=== PATIENT | female | born 1980 | race Caucasian/White ===

== ENCOUNTER 2016-09-10 13:02 | Inpatient (IN) | payer MEDICAID ==
[~2016-09-10] VITALS: Ht 170.2 cm; Wt 98.9 kg
[2016-09-10] MEDS ORDERED: ONDANSETRON HCL 4MG/2ML VIAL IV STA (14:45)
[2016-09-10] MEDS ORDERED: KETOROLAC 30MG/ML VIAL IV STA (14:45)
[2016-09-10] MEDS ORDERED: SODIUM CHLORIDE 0.9% 1,000 ML IV ONE (14:45)
[2016-09-10 15:26] LABS: HEMATOCRIT. 32.9 % (36.0-48.0); HEMOGLOBIN. 10.9 g/dL (12.0-16.0); MEAN CORPUSCULAR HEMOGLOBIN 26.7 pg (28.0-32.0); MEAN CORPUSCULAR HGB CONC 33.2 g/dL (31.0-37.0); MEAN CORPUSCULAR VOLUME 80.6 fL (81.0-99.0); MEAN PLATELET VOLUME 7.5 fl (7.4-10.4); PLATELET 271 x1000/uL (130-400); RED BLOOD CELL COUNT 4.08 mill/uL (4.2-5.4); RED CELL DISTRIBUTION WIDTH 15.5 % (11.6-14.6); WHITE BLOOD COUNT 16.9 x1000/uL (4.5-11.0)
[2016-09-10 15:29] LABS: CHLORIDE 106 mEq/L (98-107); INDEX HEMOLYSI 1 (1-3); INDEX ICTERIC 1 (1-4); INDEX LIPEMIC 1 (1-3)
[2016-09-10 15:31] LABS: DIFFERENTIAL COMMENT 1
[2016-09-10 15:32] LABS: PROTHROMBIN TIME 10.5 sec
[2016-09-10 15:38] LABS: ALANINE AMINOTRANSFERASE 13 IU/L (13-61); ANION GAP 11; CALCIUM 8.1 mg/dL (8.5-10.1); CARBON DIOXIDE 27 mEq/L (21-32); UREA NITROGEN BLOOD 11 mg/dL (7-21); eGFR > 60 mL/min (>60)
[2016-09-10 15:53] LABS: CLARITY URINE CLOUDY (CLEAR); COLOR URINE YELLOW (YELLOW); GLUCOSE URINE NEGATIVE (NEGATIVE); KETONES URINE NEGATIVE (NEGATIVE); LEUKOCYTE ESTERASE URINE 2+ (NEGATIVE); NITRITE URINE POSITIVE (NEGATIVE); OCCULT BLOOD URINE 1+ (NEGATIVE); PH URINE 8.5 (4.5-8.0); PROTEIN URINE 1+ (NEGATIVE); SPECIFIC GRAVITY URINE 1.016 (1.005-1.030); UROBILINOGEN URINE 0.2 E.U./dL (0.2-1.0)
[2016-09-10 16:08] LABS: BACTERIA URINE 4+; SQUAMOUS EPITHELIAL CELL URINE 1+ /lpf (RARE/1+)
[2016-09-10 16:14] LABS: PLATELET ESTIMATE NORMAL
[2016-09-10] MEDS ORDERED: CEFTRIAXONE 1 G PREMIX 50 ML IV ONE (16:15)
[2016-09-10 16:17] LABS: ANISOCYTOSIS 1+
[2016-09-10] MEDS ORDERED: ACETAMINOPHEN 325MG TABLET PO ONE ×2 (16:45→23:00)
[2016-09-10] MEDS ORDERED: MORPHINE SULFATE 4 MG/ML CPJ (NOT FOR IM USE) IV ONE (20:15)
[2016-09-11] VITALS (61 sets, daily range): BP systolic 71–156; BP diastolic 27–86
[2016-09-11] MEDS ORDERED: ACETAMINOPHEN 650MG/20.3ML UDC PO PRN (02:00)
[2016-09-11] MEDS: DEXT 5%/0.9% NACL 1,000 ML IV SCH ×2 (04:11→14:07)
[2016-09-11 07:25] LABS: HEMATOCRIT. 28.2 % (36.0-48.0); HEMOGLOBIN. 9.3 g/dL (12.0-16.0); MEAN CORPUSCULAR HEMOGLOBIN 27.2 pg (28.0-32.0); MEAN CORPUSCULAR VOLUME 82.3 fL (81.0-99.0); MEAN PLATELET VOLUME 7.7 fl (7.4-10.4); PLATELET 163 x1000/uL (130-400); RED BLOOD CELL COUNT 3.42 mill/uL (4.2-5.4); RED CELL DISTRIBUTION WIDTH 15.6 % (11.6-14.6); WHITE BLOOD COUNT 25.4 x1000/uL (4.5-11.0)
[2016-09-11 07:27] LABS: DIFFERENTIAL COMMENT 1
[2016-09-11] MEDS: ONDANSETRON HCL 4MG/2ML VIAL IV PRN (07:46)
[2016-09-11] MEDS: MORPHINE SULFATE 4 MG/ML CPJ (NOT FOR IM USE) IV PRN ×2 (07:46→12:46)
[2016-09-11 08:06] LABS: LACTIC ACID 4.8 mmol/L (0.4-2.0)
[2016-09-11 08:08] LABS: CALCIUM 7.2 mg/dL (8.5-10.1)
[2016-09-11 10:01] LABS: ANISOCYTOSIS 1+; PLATELET ESTIMATE NORMAL
[2016-09-11] MEDS ORDERED: SODIUM CHLORIDE 0.9% 500 ML IV SCH ×2 (12:15→12:45)
[2016-09-11] MEDS: CEFTRIAXONE 1 G PREMIX 50 ML IV SCH (17:37)
[2016-09-11] MEDS ORDERED: SODIUM CHLORIDE 0.9% 500 ML IV NR (18:00)
[2016-09-11] MEDS: FOLIC ACID 1MG TABLET PO SCH (18:03)
[2016-09-11] MEDS: PRENATAL VIT/FE FUMARATE/FA TABLET PO SCH (20:37)
[2016-09-12] VITALS (30 sets, daily range): BP systolic 100–174; BP diastolic 39–95
[2016-09-12] MEDS: MORPHINE SULFATE 4 MG/ML CPJ (NOT FOR IM USE) IV PRN (00:11)
[2016-09-12] MEDS ORDERED: GENTAMICIN SULFATE 150 MG in SODIUM CHLORIDE 0.9% 100 ML IV NR ×2 (02:15→03:00)
[2016-09-12] MEDS: DEXT 5%/0.9% NACL 1,000 ML IV SCH ×2 (05:30→17:48)
[2016-09-12 05:47] LABS: HEMATOCRIT. 27.7 % (36.0-48.0); HEMOGLOBIN. 9.2 g/dL (12.0-16.0); MEAN CORPUSCULAR HEMOGLOBIN 26.6 pg (28.0-32.0); MEAN CORPUSCULAR HGB CONC 33.1 g/dL (31.0-37.0); MEAN CORPUSCULAR VOLUME 80.3 fL (81.0-99.0); MEAN PLATELET VOLUME 8.3 fl (7.4-10.4); PLATELET 146 x1000/uL (130-400); RED BLOOD CELL COUNT 3.45 mill/uL (4.2-5.4); RED CELL DISTRIBUTION WIDTH 16.4 % (11.6-14.6); WHITE BLOOD COUNT 24.1 x1000/uL (4.5-11.0)
[2016-09-12 06:09] LABS: DIFFERENTIAL COMMENT 1
[2016-09-12 06:38] LABS: ALANINE AMINOTRANSFERASE 14 IU/L (13-61); ALBUMIN 2.2 g/dL (3.4-5.0); ANION GAP 15; CALCIUM 7.3 mg/dL (8.5-10.1); CARBON DIOXIDE 20 mEq/L (21-32); CHLORIDE 100 mEq/L (98-107); INDEX HEMOLYSI 1 (1-3); INDEX ICTERIC 1 (1-4); INDEX LIPEMIC 1 (1-3); MAGNESIUM 1.5 mg/dL (1.8-2.4); UREA NITROGEN BLOOD 20 mg/dL (7-21); eGFR 34 mL/min (>60)
[2016-09-12] MEDS: ONDANSETRON HCL 4MG/2ML VIAL IV PRN (08:11)
[2016-09-12 08:15] LABS: PLATELET ESTIMATE NORMAL
[2016-09-12] MEDS ORDERED: MAGNESIUM 1 G PREMIX 100 ML IV NR (08:15)
[2016-09-12] MEDS: PRENATAL VIT/FE FUMARATE/FA TABLET PO SCH (09:00)
[2016-09-12] MEDS: FOLIC ACID 1MG TABLET PO SCH (09:00)
[2016-09-12] MEDS ORDERED: POTASSIUM CHLORIDE INJ 40 MEQ in DEXT 5% WATER 250 ML IV NR (09:30)
[2016-09-12] MEDS ORDERED: VANCOMYCIN 750 MG in DEXT 5% WATER 250 ML IV SCH (12:15)
[2016-09-12] MEDS ORDERED: VANCOMYCIN 1 G PREMIX 200 ML IV NR (14:00)
[2016-09-12] MEDS: CEFTRIAXONE 1 G PREMIX 50 ML IV SCH (16:56)
[2016-09-13] VITALS (13 sets, daily range): BP systolic 119–152; BP diastolic 72–98
[2016-09-13 05:40] LABS: HEMATOCRIT. 27.3 % (36.0-48.0); HEMOGLOBIN. 9.3 g/dL (12.0-16.0); MEAN CORPUSCULAR HEMOGLOBIN 27.2 pg (28.0-32.0); MEAN CORPUSCULAR HGB CONC 34.2 g/dL (31.0-37.0); MEAN CORPUSCULAR VOLUME 79.5 fL (81.0-99.0); MEAN PLATELET VOLUME 8.3 fl (7.4-10.4); PLATELET 118 x1000/uL (130-400); RED BLOOD CELL COUNT 3.43 mill/uL (4.2-5.4); RED CELL DISTRIBUTION WIDTH 16.5 % (11.6-14.6); WHITE BLOOD COUNT 11.7 x1000/uL (4.5-11.0)
[2016-09-13 05:41] LABS: DIFFERENTIAL COMMENT 1
[2016-09-13] MEDS ORDERED: GENTAMICIN SULFATE 160 MG in SODIUM CHLORIDE 0.9% 100 ML IV SCH (06:00)
[2016-09-13 06:05] LABS: CALCIUM 7.8 mg/dL (8.5-10.1); MAGNESIUM 2.2 mg/dL (1.8-2.4)
[2016-09-13] MEDS: DEXT 5%/0.9% NACL 1,000 ML IV SCH ×2 (06:37→21:02)
[2016-09-13] MEDS: PRENATAL VIT/FE FUMARATE/FA TABLET PO SCH (08:20)
[2016-09-13] MEDS: FOLIC ACID 1MG TABLET PO SCH (08:20)
[2016-09-13 10:12] LABS: ANISOCYTOSIS 1+; PLATELET ESTIMATE DECREASED
[2016-09-13] MEDS: CEFTRIAXONE 1 G PREMIX 50 ML IV SCH (17:00)
[2016-09-14] VITALS: BP 126/95
[2016-09-14 04:00] VITALS: BP 132/96
[2016-09-14 08:00] VITALS: BP 104/73
[2016-09-14] MEDS: FOLIC ACID 1MG TABLET PO SCH (09:08)
[2016-09-14] MEDS: PRENATAL VIT/FE FUMARATE/FA TABLET PO SCH (09:08)
[2016-09-14] MEDS: DEXT 5%/0.9% NACL 1,000 ML IV SCH (09:09)
[2016-09-14 12:00] VITALS: BP 120/84
[2016-09-14 14:46] VITALS: BP 120/84
== END 2016-09-14 15:45 | disposition home or self-care (01) | DRG 720 ==
LOC: ER 14:12 → 6EST 21:20 → CVICU 09-11 07:11 → 8WST 09-13 18:30
PROVIDERS: ADMIT Hospitalist; ATTEND Hospitalist
DX: A41.9 Sepsis, unspecified organism (principal); R65.21 Severe sepsis with septic shock; N17.9 Acute kidney failure, unspecified; E83.42 Hypomagnesemia; N13.2 Hydronephrosis with renal and ureteral calculous obstruction; E83.51 Hypocalcemia; Z33.1 Pregnant state, incidental; E66.9 Obesity, unspecified; F17.200 Nicotine dependence, unspecified, uncomplicated; Z60.2 Problems related to living alone; Z68.34 Body mass index [BMI] 34.0-34.9, adult
CPT/HCPCS: 36415; 76770; 76801; 80048; 80053; 81001; 81025; 83605; 83690; 83735; 84145; 84702; 85025; 85610; 87040; 87086; 96361; 96365; 96375; 99285; J0696; J1580; J1885; J2270; J2405; J3370; J3475; J3480; J7030; J7040; J7042; J7050; J7060

== ENCOUNTER 2017-02-07 10:33 | Observation (INO) | payer MEDICAID, OTHER ==
[~2017-02-07] VITALS: Ht 167.6 cm; Wt 99.8 kg
[2017-02-07] MEDS ORDERED: PNV1TABL76 MT (11:01)
[2017-02-07 11:49] LABS: BASOPHILS % 0.1 % (0.0-2.0); CLARITY URINE CLOUDY (CLEAR); COLOR URINE YELLOW (YELLOW); EOSINOPHILS % 0.1 % (0.0-5.0); GLUCOSE URINE NEGATIVE (NEGATIVE); HEMATOCRIT. 28.6 % (36.0-48.0); HEMOGLOBIN. 9.7 g/dL (12.0-16.0); KETONES URINE NEGATIVE (NEGATIVE); LEUKOCYTE ESTERASE URINE 3+ (NEGATIVE); LYMPHOCYTES % 7.1 % (20.0-50.0); MEAN CORPUSCULAR HEMOGLOBIN 26.4 pg (28.0-32.0); MEAN CORPUSCULAR VOLUME 78.3 fL (81.0-99.0); MEAN PLATELET VOLUME 8.3 fl (7.4-10.4); MONOCYTES % 9.8 % (2.0-8.0); NEUTROPHILS % 82.9 % (40.0-76.0); NITRITE URINE POSITIVE (NEGATIVE); OCCULT BLOOD URINE 2+ (NEGATIVE); PH URINE 7.5 (4.5-8.0); PLATELET 188 x1000/uL (130-400); PROTEIN URINE 1+ (NEGATIVE); RED BLOOD CELL COUNT 3.66 mill/uL (4.2-5.4); RED CELL DISTRIBUTION WIDTH 16.4 % (11.6-14.6); SPECIFIC GRAVITY URINE 1.008 (1.005-1.030); UROBILINOGEN URINE 0.2 E.U./dL (0.2-1.0)
[2017-02-07] MEDS: LACTATED RINGERS 1,000 ML IV SCH ×2 (11:51→20:05)
[2017-02-07 11:57] LABS: CHLORIDE 99 mEq/L (98-107)
[2017-02-07] MEDS: ACETAMINOPHEN 325MG TABLET PO PRN ×2 (11:58→18:31)
[2017-02-07] MEDS ORDERED: CEFAZOLIN 2,000 MG in DEXT 5% WATER 100 ML IV SCH (12:00)
[2017-02-07 12:05] LABS: CARBON DIOXIDE 21 mEq/L (21-32)
[2017-02-07 12:19] LABS: *AMPHETAMINES SCREEN URINE NEGATIVE (NEGATIVE); *BARBITURATES SCREEN URINE NEGATIVE (NEGATIVE); *BENZODIAZEPINES SCREEN URINE NEGATIVE (NEGATIVE); *COCAINE SCREEN URINE NEGATIVE (NEGATIVE); CANNABINOID URINE SCREEN NEGATIVE (NEGATIVE); METHADONE URINE SCREEN NEGATIVE (NEGATIVE); OPIATES URINE SCREEN NEGATIVE (NEGATIVE); PHENCYCLIDINE URINE SCREEN NEGATIVE (NEGATIVE)
[2017-02-07] MEDS ORDERED: CEFAZOLIN SODIUM 1000MG/VIAL IV SCH (18:00)
[2017-02-07 18:30] VITALS: BP 114/55
[2017-02-07] MEDS: CEFAZOLIN 1000MG PREMIX 50 ML IV SCH (18:30)
[2017-02-07] MEDS: GENTAMICIN 80MG PREMIX 100 ML IV SCH (20:04)
[2017-02-07 20:30] VITALS: BP 117/51
[2017-02-08 00:05] VITALS: BP 103/55
[2017-02-08] MEDS: CEFAZOLIN 1000MG PREMIX 50 ML IV SCH ×4 (00:07→19:53)
[2017-02-08] MEDS: ACETAMINOPHEN 325MG TABLET PO PRN (00:07)
[2017-02-08] MEDS: GENTAMICIN 80MG PREMIX 100 ML IV SCH ×3 (04:06→21:01)
[2017-02-08 05:30] VITALS: BP 95/58
[2017-02-08] MEDS: LACTATED RINGERS 1,000 ML IV SCH (05:44)
[2017-02-08 07:19] LABS: HEMOGLOBIN 9.4 g/dL (12.0-16.0); MEAN CORPUSCULAR HEMOGLOBIN 26.7 pg (28.0-32.0); MEAN CORPUSCULAR VOLUME 79.4 fL (81.0-99.0); PLATELET 166 x1000/uL (130-400); RED BLOOD CELL COUNT 3.52 mill/uL (4.2-5.4); RED CELL DISTRIBUTION WIDTH 16.3 % (11.6-14.6)
[2017-02-08 08:00] VITALS: BP 100/54
[2017-02-08 08:38] LABS: CARBON DIOXIDE 23 mEq/L (21-32); CHLORIDE 100 mEq/L (98-107)
[2017-02-08] MEDS ORDERED: POTASSIUM CHLORIDE 20MEQ TABLET SR PO SCH (09:00)
[2017-02-08 14:00] VITALS: BP 105/56
[2017-02-08] MEDS: PRENATAL VIT/FE FUMARATE/FA TABLET PO SCH (14:21)
[2017-02-08 20:00] VITALS: BP 97/49
[2017-02-09 00:01] VITALS: BP 114/60
[2017-02-09] MEDS: CEFAZOLIN 1000MG PREMIX 50 ML IV SCH ×2 (01:27→09:54)
[2017-02-09] MEDS: GENTAMICIN 80MG PREMIX 100 ML IV SCH ×2 (04:28→12:24)
[2017-02-09 04:30] VITALS: BP 98/58
[2017-02-09 07:39] LABS: HEMATOCRIT 25.7 % (36.0-48.0); HEMOGLOBIN 8.7 g/dL (12.0-16.0); MEAN CORPUSCULAR HEMOGLOBIN 27.1 pg (28.0-32.0); MEAN CORPUSCULAR VOLUME 79.5 fL (81.0-99.0); PLATELET 158 x1000/uL (130-400); RED BLOOD CELL COUNT 3.23 mill/uL (4.2-5.4); RED CELL DISTRIBUTION WIDTH 16.7 % (11.6-14.6)
[2017-02-09 08:04] LABS: CARBON DIOXIDE 24 mEq/L (21-32); CHLORIDE 105 mEq/L (98-107)
[2017-02-09] MEDS: PRENATAL VIT/FE FUMARATE/FA TABLET PO SCH (09:54)
[2017-02-09 10:07] VITALS: BP 90/48
[2017-02-09 12:00] VITALS: BP_SYST 1
== END 2017-02-09 15:40 | disposition home or self-care (01) ==
LOC: L&D 10:33 → 7EST PP/OB 16:22
PROVIDERS: ADMIT Obstetrics & Gynecology; ATTEND Obstetrics & Gynecology
DX: O23.02 Infections of kidney in pregnancy, second trimester (principal); O99.282 Endocrine, nutritional and metabolic diseases complicating pregnancy, second trimester; E87.6 Hypokalemia; O99.012 Anemia complicating pregnancy, second trimester; Z3A.26 26 weeks gestation of pregnancy
CPT/HCPCS: 36415; 76805; 80048; 80053; 80305; 81001; 85025; 85027; 87077; 87086; 87186; 96361; 96365; 96367; 96375; G0378; J0690; J1580; J7120; 99281; J7060

== ENCOUNTER 2017-03-04 05:21 | Inpatient (IN) | payer OTHER ==
[~2017-03-04] VITALS: Ht 172.7 cm; Wt 99.8 kg
[~2017-03-04 05:21] MED LIST: PNV1TABL76 MT
[2017-03-04] MEDS ORDERED: BETAMETHASONE ACET/BETAMET 30 MG/5 ML VIAL IM ONE (06:30)
[2017-03-04] MEDS: LACTATED RINGERS 1,000 ML IV SCH ×3 (06:42→16:02)
[2017-03-04 07:08] LABS: BASOPHILS % 0.2 % (0.0-2.0); EOSINOPHILS % 0.5 % (0.0-5.0); HEMATOCRIT. 30.3 % (36.0-48.0); LYMPHOCYTES % 19.6 % (20.0-50.0); MEAN CORPUSCULAR HEMOGLOBIN 26.4 pg (28.0-32.0); MEAN PLATELET VOLUME 8.3 fl (7.4-10.4); MONOCYTES % 6.7 % (2.0-8.0); PLATELET 218 x1000/uL (130-400); RED BLOOD CELL COUNT 3.79 mill/uL (4.2-5.4); RED CELL DISTRIBUTION WIDTH 16.7 % (11.6-14.6)
[2017-03-04 07:23] LABS: CARBON DIOXIDE 21 mEq/L (21-32); CHLORIDE 109 mEq/L (98-107)
[2017-03-04 07:31] LABS: PROTHROMBIN TIME 9.9 sec (9.4-11.6)
[2017-03-04 07:56] LABS: HEPATITIS B SURFACE ANTIGEN NEGATIVE
[2017-03-04] MEDS ORDERED: CARBOPROST TROMETHAMINE 250 MCG/ML AMPUL IM PRN (08:45)
[2017-03-04] MEDS ORDERED: DEXT 5%/LR + PITOCIN 20UNITS/L 1,000 ML IV SCH (08:45)
[2017-03-04] MEDS ORDERED: AMPICILLIN 2,000 MG in SODIUM CHLORIDE 0.9% 100 ML IV SCH (08:45)
[2017-03-04] MEDS ORDERED: METHYLERGONOVINE MALEATE 0.2 MG/ML IM PRN (08:45)
[2017-03-04] MEDS: AZITHROMYCIN 500 MG in DEXT 5% WATER 250 ML IV SCH (09:57)
[2017-03-04 11:11] LABS: CLARITY URINE CLEAR (CLEAR); COLOR URINE YELLOW (YELLOW); GLUCOSE URINE NEGATIVE (NEGATIVE); KETONES URINE NEGATIVE (NEGATIVE); LEUKOCYTE ESTERASE URINE TRACE (NEGATIVE); NITRITE URINE NEGATIVE (NEGATIVE); OCCULT BLOOD URINE 1+ (NEGATIVE); PH URINE 6.5 (4.5-8.0); PROTEIN URINE 1+ (NEGATIVE); SPECIFIC GRAVITY URINE 1.015 (1.005-1.030); UROBILINOGEN URINE 0.2 E.U./dL (0.2-1.0)
[2017-03-04 11:28] LABS: *BARBITURATES SCREEN URINE NEGATIVE (NEGATIVE); *BENZODIAZEPINES SCREEN URINE NEGATIVE (NEGATIVE); *COCAINE SCREEN URINE NEGATIVE (NEGATIVE); CANNABINOID URINE SCREEN NEGATIVE (NEGATIVE); METHADONE URINE SCREEN NEGATIVE (NEGATIVE); OPIATES URINE SCREEN NEGATIVE (NEGATIVE); PHENCYCLIDINE URINE SCREEN NEGATIVE (NEGATIVE)
[2017-03-04 11:31] LABS: *AMPHETAMINES SCREEN URINE PRESUMTIVE POSITIVE (NEGATIVE)
[2017-03-04] MEDS: AMPICILLIN 1,000 MG in SODIUM CHLORIDE 0.9% 50 ML IV SCH ×2 (16:56→22:57)
[2017-03-04] MEDS ORDERED: CEFAZOLIN 2,000 MG in DEXT 5% WATER 100 ML IV SCH (21:30)
[2017-03-04] MEDS ORDERED: LACTATED RINGERS 1,000 ML IV SCH (21:30)
[2017-03-05] MEDS: AMPICILLIN 1,000 MG in SODIUM CHLORIDE 0.9% 50 ML IV SCH ×4 (04:52→23:05)
[2017-03-05] MEDS: LACTATED RINGERS 1,000 ML IV SCH ×3 (04:53→21:42)
[2017-03-05] MEDS ORDERED: BETAMETHASONE ACET/BETAMET 30 MG/5 ML VIAL IM SCH (06:30)
[2017-03-05] MEDS: AZITHROMYCIN 500 MG in DEXT 5% WATER 250 ML IV SCH (09:15)
[2017-03-05 20:59] LABS: BASOPHILS % 0.1 % (0.0-2.0); EOSINOPHILS % 0.1 % (0.0-5.0); HEMOGLOBIN. 9.1 g/dL (12.0-16.0); MEAN CORPUSCULAR HEMOGLOBIN 26.2 pg (28.0-32.0); MEAN CORPUSCULAR VOLUME 80.3 fL (81.0-99.0); MEAN PLATELET VOLUME 8.3 fl (7.4-10.4); NEUTROPHILS % 83.8 % (40.0-76.0); PLATELET 211 x1000/uL (130-400); RED BLOOD CELL COUNT 3.49 mill/uL (4.2-5.4); RED CELL DISTRIBUTION WIDTH 16.7 % (11.6-14.6)
[2017-03-06] MEDS: AMPICILLIN 1,000 MG in SODIUM CHLORIDE 0.9% 50 ML IV SCH ×4 (05:03→22:54)
[2017-03-06] MEDS: LACTATED RINGERS 1,000 ML IV SCH ×3 (06:27→22:55)
[2017-03-06] MEDS: AZITHROMYCIN 500 MG in DEXT 5% WATER 250 ML IV SCH (11:56)
[2017-03-07] MEDS: DOCUSATE SODIUM 100MG CAPSULE PO SCH ×2 (00:08→08:55)
[2017-03-07] MEDS: AMPICILLIN 1,000 MG in SODIUM CHLORIDE 0.9% 50 ML IV SCH ×3 (05:03→18:12)
[2017-03-07] MEDS: LACTATED RINGERS 1,000 ML IV SCH ×2 (07:58→18:12)
[2017-03-07] MEDS: AZITHROMYCIN 500 MG in DEXT 5% WATER 250 ML IV SCH (12:56)
[2017-03-07] MEDS ORDERED: FLOV11 IH (15:18)
[2017-03-08] MEDS: AMPICILLIN 1,000 MG in SODIUM CHLORIDE 0.9% 50 ML IV SCH ×4 (00:09→17:58)
[2017-03-08] MEDS: DOCUSATE SODIUM 100MG CAPSULE PO SCH ×3 (00:11→23:59)
[2017-03-08] MEDS: LACTATED RINGERS 1,000 ML IV SCH ×3 (03:50→18:47)
[2017-03-08] MEDS: AZITHROMYCIN 500 MG in DEXT 5% WATER 250 ML IV SCH (12:56)
[2017-03-08] MEDS ORDERED: POTASSIUM CHLORIDE 20MEQ TABLET SR PO NR (19:15)
[2017-03-09] MEDS: LACTATED RINGERS 1,000 ML IV SCH ×3 (05:02→20:34)
[2017-03-09] MEDS: AMPICILLIN 1,000 MG in SODIUM CHLORIDE 0.9% 50 ML IV SCH ×6 (06:32→17:56)
[2017-03-09] MEDS ORDERED: POTASSIUM CHLORIDE 20MEQ TABLET SR PO SCH (07:00)
[2017-03-09] MEDS: DOCUSATE SODIUM 100MG CAPSULE PO SCH (10:22)
[2017-03-09] MEDS: AZITHROMYCIN 500 MG in DEXT 5% WATER 250 ML IV SCH (13:24)
[2017-03-09 14:22] LABS: HEMATOCRIT 29.8 % (36.0-48.0); HEMOGLOBIN 9.8 g/dL (12.0-16.0); MEAN CORPUSCULAR HEMOGLOBIN 26.3 pg (28.0-32.0); MEAN CORPUSCULAR VOLUME 79.7 fL (81.0-99.0); PLATELET 196 x1000/uL (130-400); RED BLOOD CELL COUNT 3.74 mill/uL (4.2-5.4); RED CELL DISTRIBUTION WIDTH 16.5 % (11.6-14.6)
[2017-03-09] MEDS ORDERED: MAGNESIUM 20 G PREMIX (L & D) 500 ML IV SCH (18:00)
[2017-03-09] MEDS: MAGNESIUM 4 G PREMIX 100 ML IV NR ×2 (18:46→18:47)
[2017-03-10] MEDS: DOCUSATE SODIUM 100MG CAPSULE PO SCH ×3 (00:20→21:05)
[2017-03-10] MEDS: AMPICILLIN 1,000 MG in SODIUM CHLORIDE 0.9% 50 ML IV SCH ×4 (00:22→17:46)
[2017-03-10] MEDS: LACTATED RINGERS 1,000 ML IV SCH ×3 (02:32→17:47)
[2017-03-10] MEDS: AZITHROMYCIN 500 MG in DEXT 5% WATER 250 ML IV SCH (13:40)
[2017-03-10 17:12] LABS: AMPHETAMINE CONF URINE Positive (.)
[2017-03-11] MEDS: AMPICILLIN 1,000 MG in SODIUM CHLORIDE 0.9% 50 ML IV SCH ×3 (00:26→12:16)
[2017-03-11] MEDS: LACTATED RINGERS 1,000 ML IV SCH ×2 (01:55→10:45)
[2017-03-11] MEDS: DOCUSATE SODIUM 100MG CAPSULE PO SCH ×2 (08:55→21:38)
[2017-03-11] MEDS: PRENATAL VIT/FE FUMARATE/FA TABLET PO SCH (08:55)
[2017-03-11] MEDS: AZITHROMYCIN 500 MG in DEXT 5% WATER 250 ML IV SCH (14:35)
[2017-03-12 07:44] LABS: BASOPHILS % 0.2 % (0.0-2.0); EOSINOPHILS % 1.6 % (0.0-5.0); HEMOGLOBIN. 10.1 g/dL (12.0-16.0); LYMPHOCYTES % 23.3 % (20.0-50.0); MEAN CORPUSCULAR HEMOGLOBIN 25.9 pg (28.0-32.0); MEAN CORPUSCULAR VOLUME 79.3 fL (81.0-99.0); MEAN PLATELET VOLUME 7.8 fl (7.4-10.4); MONOCYTES % 9.8 % (2.0-8.0); NEUTROPHILS % 65.1 % (40.0-76.0); PLATELET 217 x1000/uL (130-400); RED BLOOD CELL COUNT 3.91 mill/uL (4.2-5.4); RED CELL DISTRIBUTION WIDTH 16.5 % (11.6-14.6)
[2017-03-12 07:59] LABS: CARBON DIOXIDE 26 mEq/L (21-32); CHLORIDE 102 mEq/L (98-107)
[2017-03-12] MEDS: PRENATAL VIT/FE FUMARATE/FA TABLET PO SCH (08:22)
[2017-03-12] MEDS: DOCUSATE SODIUM 100MG CAPSULE PO SCH ×2 (08:22→18:56)
[2017-03-12] MEDS ORDERED: ALBUMIN HUMAN 12.5G/250ML (5%) IV ONE (11:07)
[2017-03-13] MEDS: DOCUSATE SODIUM 100MG CAPSULE PO SCH ×2 (08:34→17:26)
[2017-03-13] MEDS: PRENATAL VIT/FE FUMARATE/FA TABLET PO SCH (08:35)
[2017-03-14] MEDS: PRENATAL VIT/FE FUMARATE/FA TABLET PO SCH (09:26)
[2017-03-14] MEDS: DOCUSATE SODIUM 100MG CAPSULE PO SCH ×3 (09:26→22:26)
[2017-03-15] MEDS: DOCUSATE SODIUM 100MG CAPSULE PO SCH (09:02)
[2017-03-15] MEDS: PRENATAL VIT/FE FUMARATE/FA TABLET PO SCH (09:02)
[2017-03-16] MEDS: PRENATAL VIT/FE FUMARATE/FA TABLET PO SCH (08:59)
[2017-03-16] MEDS: DOCUSATE SODIUM 100MG CAPSULE PO SCH (08:59)
[2017-03-17] MEDS: DOCUSATE SODIUM 100MG CAPSULE PO SCH (09:08)
[2017-03-17] MEDS: PRENATAL VIT/FE FUMARATE/FA TABLET PO SCH (09:08)
[2017-03-18] MEDS: DOCUSATE SODIUM 100MG CAPSULE PO SCH (07:39)
[2017-03-18] MEDS: PRENATAL VIT/FE FUMARATE/FA TABLET PO SCH (07:39)
[2017-03-19] MEDS: LACTATED RINGERS 1,000 ML IV SCH ×2 (03:21→06:58)
[2017-03-19] MEDS ORDERED: MAGNESIUM 20 G PREMIX (L & D) 500 ML IV SCH (04:30)
[2017-03-19 06:41] LABS: HEMATOCRIT 30.7 % (36.0-48.0); HEMOGLOBIN 10.2 g/dL (12.0-16.0); MEAN CORPUSCULAR HEMOGLOBIN 26.7 pg (28.0-32.0); MEAN CORPUSCULAR VOLUME 80.3 fL (81.0-99.0); PLATELET 190 x1000/uL (130-400); RED BLOOD CELL COUNT 3.82 mill/uL (4.2-5.4); RED CELL DISTRIBUTION WIDTH 17.4 % (11.6-14.6)
[2017-03-19] MEDS: BUTORPHANOL TARTRATE 2 MG/ML VIAL IV PRN ×2 (06:41→09:10)
[2017-03-19 07:09] LABS: *AMPHETAMINES SCREEN URINE NEGATIVE (NEGATIVE); *BARBITURATES SCREEN URINE NEGATIVE (NEGATIVE); *BENZODIAZEPINES SCREEN URINE NEGATIVE (NEGATIVE); *COCAINE SCREEN URINE NEGATIVE (NEGATIVE); CANNABINOID URINE SCREEN NEGATIVE (NEGATIVE); METHADONE URINE SCREEN NEGATIVE (NEGATIVE); OPIATES URINE SCREEN NEGATIVE (NEGATIVE); PHENCYCLIDINE URINE SCREEN NEGATIVE (NEGATIVE)
[2017-03-19] MEDS ORDERED: MIDAZOLAM HCL 2 MG/2 ML VIAL ONE (10:37)
[2017-03-19] MEDS ORDERED: MORPHINE SULFATE/PF 1MG/ML 10ML AMP ONE (10:37)
[2017-03-19] MEDS ORDERED: SODIUM CHLORIDE 0.9% 10ML VIAL ONE (10:40)
[2017-03-19] MEDS ORDERED: DEXAMETHASONE 4MG/ML 1ML VIAL ONE (10:40)
[2017-03-19] MEDS ORDERED: CEFAZOLIN SODIUM 1000MG/VIAL ONE (10:40)
[2017-03-19] MEDS ORDERED: PHENYLEPHRINE HCL 10 MG/ML 1ML (IV VIAL) IV ONE (10:40)
[2017-03-19] MEDS ORDERED: ONDANSETRON HCL 4MG/2ML VIAL ONE (10:40)
[2017-03-19] MEDS ORDERED: EPHEDRINE SULFATE 50MG/ML VIAL ONE (10:40)
[2017-03-19] MEDS ORDERED: OXYTOCIN 10 UNITS/ML 1ML ONE (10:40)
[2017-03-19] MEDS ORDERED: RHO(D) IMMUNE GLOBULIN 300 MCG/SYR IM PRN (12:15)
[2017-03-19] MEDS ORDERED: LANOLIN OINT 0.25 GM TUBE TOP PRN (12:15)
[2017-03-19] MEDS ORDERED: ONDANSETRON HCL 4MG/2ML VIAL IV PRN ×2 (12:15→12:30)
[2017-03-19] MEDS ORDERED: HYDROCODONE/ACETAMINOPHEN 5/325MG TABLET PO PRN (12:15)
[2017-03-19] MEDS ORDERED: DIPHENHYDRAMINE 50MG/ML VIAL IV PRN (12:30)
[2017-03-19] MEDS ORDERED: NALOXONE HCL 0.4 MG/ML 1ML VIAL IV PRN (12:30)
[2017-03-19] MEDS ORDERED: DEXT 5%/LR + PITOCIN 20UNITS/L 1,000 ML IV SCH (12:55)
[2017-03-19] MEDS ORDERED: CEFAZOLIN 1000MG PREMIX 50 ML IV SCH (14:00)
[2017-03-19] MEDS ORDERED: CEFAZOLIN SODIUM 1000MG/VIAL IV SCH (14:00)
[2017-03-19 15:00] VITALS: BP 100/60
[2017-03-19 15:30] VITALS: BP 100/57
[2017-03-19] MEDS: KETOROLAC 30MG/ML VIAL IV SCH ×2 (16:00→22:25)
[2017-03-19] MEDS: CEFAZOLIN 1000MG PREMIX 50 ML IV SCH (17:24)
[2017-03-19 22:20] VITALS: BP 102/50
[2017-03-20 01:57] VITALS: BP 105/60
[2017-03-20] MEDS: CEFAZOLIN 1000MG PREMIX 50 ML IV SCH ×3 (02:00→17:33)
[2017-03-20 05:56] VITALS: BP 100/53
[2017-03-20 06:40] LABS: BASOPHILS % 0.1 % (0.0-2.0); EOSINOPHILS % 0.3 % (0.0-5.0); HEMATOCRIT. 24.3 % (36.0-48.0); HEMOGLOBIN. 8.1 g/dL (12.0-16.0); LYMPHOCYTES % 10.2 % (20.0-50.0); MEAN CORPUSCULAR HEMOGLOBIN 27.2 pg (28.0-32.0); MEAN CORPUSCULAR VOLUME 81.4 fL (81.0-99.0); MEAN PLATELET VOLUME 7.9 fl (7.4-10.4); MONOCYTES % 4.9 % (2.0-8.0); NEUTROPHILS % 84.5 % (40.0-76.0); PLATELET 167 x1000/uL (130-400); RED BLOOD CELL COUNT 2.98 mill/uL (4.2-5.4)
[2017-03-20 08:00] VITALS: BP 110/70
[2017-03-20] MEDS: PRENATAL VIT/FE FUMARATE/FA TABLET PO SCH (09:46)
[2017-03-20] MEDS: HYDROCODONE/ACETAMINOPHEN 5/325MG TABLET PO PRN (16:13)
[2017-03-20 16:16] VITALS: BP 117/61
[2017-03-20] MEDS: FERROUS SULFATE 325MG TABLET PO SCH (17:33)
[2017-03-20 20:00] VITALS: BP 109/62
[2017-03-20] MEDS: DOCUSATE SODIUM 100MG CAPSULE PO SCH (20:51)
[2017-03-20] MEDS: IBUPROFEN 400MG TABLET PO PRN (22:14)
[2017-03-21] MEDS: CEFAZOLIN 1000MG PREMIX 50 ML IV SCH ×2 (01:04→09:15)
[2017-03-21 07:30] VITALS: BP 98/71
[2017-03-21] MEDS: HYDROCODONE/ACETAMINOPHEN 5/325MG TABLET PO PRN ×2 (09:17→17:39)
[2017-03-21] MEDS: FERROUS SULFATE 325MG TABLET PO SCH (12:56)
[2017-03-21 13:00] VITALS: BP 113/76
[2017-03-21] MEDS ORDERED: INFLUENZA VIRUS VACCINE 0.5ML SYR IM ONE (15:30)
[2017-03-21] MEDS ORDERED: TETANUS, DIPHTHERIA, PERTUSSIS VAC/PF 0.5ML (>7YR OLD) IM ONE (15:30)
[2017-03-21 16:08] VITALS: BP 113/70
[2017-03-21 20:00] VITALS: BP 109/73
[2017-03-21] MEDS: DOCUSATE SODIUM 100MG CAPSULE PO SCH (20:43)
[2017-03-21] MEDS: IBUPROFEN 400MG TABLET PO PRN (20:44)
[2017-03-22 05:45] VITALS: BP 112/71
[2017-03-22 07:40] VITALS: BP 112/80
[2017-03-22] MEDS: FERROUS SULFATE 325MG TABLET PO SCH ×3 (08:02→12:07)
[2017-03-22] MEDS: PRENATAL VIT/FE FUMARATE/FA TABLET PO SCH (08:04)
== END 2017-03-22 13:30 | disposition home or self-care (01) | DRG 540 ==
LOC: L&D 05:21 → OBSVTOIN 05:21 → L&D 03-08 11:46 → 7EST PP/OB 03-19 16:15
PROVIDERS: ADMIT Obstetrics & Gynecology; ATTEND Obstetrics & Gynecology
PROC: 10D00Z1 Extraction of Products of Conception, Low, Open Approach (ICD-10-PCS; principal; 2017-03-19 10:42)
DX: O34.211 Maternal care for low transverse scar from previous cesarean delivery (principal); D62 Acute posthemorrhagic anemia; O41.03X0 Oligohydramnios, third trimester, not applicable or unspecified; O99.324 Drug use complicating childbirth; O60.10X0 Preterm labor with preterm delivery, unspecified trimester, not applicable or unspecified; O75.89 Other specified complications of labor and delivery; H35.00 Unspecified background retinopathy; O32.2XX0 Maternal care for transverse and oblique lie, not applicable or unspecified; F15.10 Other stimulant abuse, uncomplicated; E87.6 Hypokalemia; O67.9 Intrapartum hemorrhage, unspecified; O03.9 Complete or unspecified spontaneous abortion without complication; O99.284 Endocrine, nutritional and metabolic diseases complicating childbirth; O42.913 Preterm premature rupture of membranes, unspecified as to length of time between rupture and onset of labor, third trimester; O99.02 Anemia complicating childbirth; Z37.0 Single live birth; Z3A.30 30 weeks gestation of pregnancy
CPT/HCPCS: 36415; 76805; 76815; 76818; 80053; 80305; 80307; 81001; 83735; 85025; 85027; 85610; 85730; 86592; 86703; 86762; 86850; 86900; 87070; 87075; 87076; 87205; 87340; 88307; 90686; 90715; 99281; A4216; G0378; J0171; J0290; J0456; J0595; J0690; J0702; J1100; J1200; J1885; J2250; J2274; J2370; J2405; J2590; J3475; J7050; J7060; J7120; P9041; A4315

== ENCOUNTER 2017-11-23 22:48 | Emergency (ER) | payer OTHER ==
[~2017-11-23] VITALS: Ht 170.2 cm; Wt 130.0 kg
[2017-11-24] MEDS ORDERED: ONDANSETRON 4MG ODT PO STA (07:52)
[2017-11-24] MEDS ORDERED: ACETAMINOPHEN 325MG TABLET PO STA (07:52)
[2017-11-24 08:22] LABS: BASOPHILS % 0.2 % (0.0-2.0); EOSINOPHILS % 0.1 % (0.0-5.0); HEMATOCRIT. 32.8 % (36.0-48.0); HEMOGLOBIN. 10.9 g/dL (12.0-16.0); LYMPHOCYTES % 15.1 % (20.0-50.0); MEAN CORPUSCULAR HEMOGLOBIN 23.6 pg (28.0-32.0); MEAN CORPUSCULAR VOLUME 71.1 fL (81.0-99.0); MONOCYTES % 10.9 % (2.0-8.0); NEUTROPHILS % 73.7 % (40.0-76.0); PLATELET 192 x1000/uL (130-400); RED BLOOD CELL COUNT 4.61 mill/uL (4.2-5.4); RED CELL DISTRIBUTION WIDTH 18.1 % (11.6-14.6)
[2017-11-24 08:27] LABS: CHLORIDE 98 mEq/L (98-107)
[2017-11-24 08:28] LABS: INR 1.1; PROTHROMBIN TIME 11.5 sec (9.4-11.6)
[2017-11-24 08:56] LABS: CLARITY URINE CLOUDY (CLEAR); COLOR URINE AMBER (YELLOW); KETONES URINE TRACE (NEGATIVE); LEUKOCYTE ESTERASE URINE 2+ (NEGATIVE); NITRITE URINE NEGATIVE (NEGATIVE); OCCULT BLOOD URINE 3+ (NEGATIVE); PROTEIN URINE 2+ (NEGATIVE)
[2017-11-24] MEDS ORDERED: SODIUM CHLORIDE 0.9% 1,000 ML IV ONE ×2 (09:01→12:04)
[2017-11-24 09:18] LABS: *BARBITURATES SCREEN URINE NEGATIVE (NEGATIVE); *BENZODIAZEPINES SCREEN URINE NEGATIVE (NEGATIVE); *COCAINE SCREEN URINE NEGATIVE (NEGATIVE); METHADONE URINE SCREEN NEGATIVE (NEGATIVE); OPIATES URINE SCREEN NEGATIVE (NEGATIVE)
[2017-11-24 09:19] LABS: *AMPHETAMINES SCREEN URINE PRESUMTIVE POSITIVE (NEGATIVE); CANNABINOID URINE SCREEN NEGATIVE (NEGATIVE); PHENCYCLIDINE URINE SCREEN NEGATIVE (NEGATIVE)
[2017-11-24] MEDS ORDERED: POTASSIUM CHLORIDE 10MEQ TABLET SR PO ONE (12:30)
[2017-11-24 14:34] VITALS: BP 114/61
== END 2017-11-24 14:21 | disposition home or self-care (01) ==
LOC: ER 22:48
DX: N39.0 Urinary tract infection, site not specified (principal); F15.10 Other stimulant abuse, uncomplicated
CPT/HCPCS: 36415; 80053; 80305; 81003; 81025; 83690; 85025; 85610; 87077; 87086; 87186; 93005; 96360; 96361; 99285; J7030; Q0162

== ENCOUNTER 2018-04-26 15:50 | Emergency (ER) | payer OTHER ==
[~2018-04-26] VITALS: Ht 170.2 cm; Wt 118.0 kg
[2018-04-26] MEDS ORDERED: IBUP-2029 PO (16:28)
[2018-04-26] MEDS ORDERED: AMOX1TAB15 PO (16:28)
[2018-04-26] MEDS ORDERED: BACITRACIN ZINC OINT UDPKT TOP ONE (18:00)
[2018-04-26] MEDS ORDERED: DIPHENHYDRAMINE 25MG CAPSULE PO ONE (18:00)
[2018-04-26] MEDS ORDERED: TETANUS, DIPHTHERIA, PERTUSSIS VAC/PF 0.5ML (>7YR OLD) IM ONE (18:00)
[2018-04-26 19:52] VITALS: BP 128/54
== END 2018-04-26 20:17 | disposition home or self-care (01) ==
LOC: ER 15:50
DX: S50.01XA Contusion of right elbow, initial encounter (principal); N28.9 Disorder of kidney and ureter, unspecified; Z98.890 Other specified postprocedural states; Z79.899 Other long term (current) drug therapy; W18.39XA Other fall on same level, initial encounter; Y93.89 Activity, other specified; Y92.89 Other specified places as the place of occurrence of the external cause; Y99.8 Other external cause status
CPT/HCPCS: 73080; 73090; 90471; 90715; 99283; A4565; Q0163

== ENCOUNTER 2019-04-21 23:12 | Emergency (ER) | payer OTHER ==
[~2019-04-21] VITALS: Ht 170.2 cm; Wt 132.0 kg
[~2019-04-21 23:12] MED LIST changes: +AMOX1TAB15 PO; +IBUP-2029 PO; -PNV1TABL76 MT
[2019-04-22] MEDS ORDERED: SODIUM CHLORIDE 0.9% 1,000 ML IV ONE (00:02)
[2019-04-22] MEDS ORDERED: ONDANSETRON HCL 4MG/2ML INJ IV STA (00:02)
[2019-04-22] MEDS ORDERED: ACETAMINOPHEN 325MG TABLET PO STA (00:02)
[2019-04-22 01:13] LABS: BASOPHILS % 0.5 % (0.0-2.0); EOSINOPHILS % 1.5 % (0.0-5.0); HEMATOCRIT. 37.4 % (36.0-48.0); HEMOGLOBIN. 12.4 g/dL (12.0-16.0); LYMPHOCYTES % 29.3 % (20.0-50.0); MEAN CORPUSCULAR HEMOGLOBIN 24.8 pg (28.0-32.0); MEAN CORPUSCULAR VOLUME 74.9 fL (81.0-99.0); MEAN PLATELET VOLUME 8.5 fl (7.4-10.4); MONOCYTES % 6.4 % (2.0-8.0); NEUTROPHILS % 62.3 % (40.0-76.0); PLATELET 336 x1000/uL (130-400); RED BLOOD CELL COUNT 4.99 mill/uL (4.2-5.4)
[2019-04-22 01:22] LABS: CHLORIDE 109 mEq/L (98-107)
[2019-04-22 01:25] LABS: ETHANOL BLOOD < 10 mg/dL
[2019-04-22 01:47] LABS: CLARITY URINE TURBID (CLEAR); COLOR URINE YELLOW (YELLOW); KETONES URINE NEGATIVE (NEGATIVE); LEUKOCYTE ESTERASE URINE 3+ (NEGATIVE); NITRITE URINE NEGATIVE (NEGATIVE); OCCULT BLOOD URINE 3+ (NEGATIVE); PROTEIN URINE 3+ (NEGATIVE); SPECIFIC GRAVITY URINE 1.018 (1.005-1.030); UROBILINOGEN URINE 0.2 E.U./dL (0.2-1.0)
[2019-04-22 02:45] LABS: *BARBITURATES SCREEN URINE NEGATIVE (NEGATIVE); *BENZODIAZEPINES SCREEN URINE NEGATIVE (NEGATIVE)
[2019-04-22] MEDS ORDERED: PIPERACILLIN/TAZOBACTAM 3.375GM/50ML PREMIX IV SCH (02:45)
[2019-04-22 02:46] LABS: CANNABINOID URINE SCREEN NEGATIVE (NEGATIVE); METHADONE URINE SCREEN NEGATIVE (NEGATIVE); OPIATES URINE SCREEN NEGATIVE (NEGATIVE); PHENCYCLIDINE URINE SCREEN NEGATIVE (NEGATIVE)
[2019-04-22 02:47] LABS: *AMPHETAMINES SCREEN URINE PRESUMTIVE POSITIVE (NEGATIVE); *COCAINE SCREEN URINE NEGATIVE (NEGATIVE)
[2019-04-22 05:00] VITALS: BP 163/96
== END 2019-04-22 06:10 | disposition short-term general hospital (02) ==
LOC: ER 23:12 → CANBEDREQ 04-22 06:19
DX: N12 Tubulo-interstitial nephritis, not specified as acute or chronic (principal); N13.30 Unspecified hydronephrosis
CPT/HCPCS: 36415; 74176; 80053; 80305; 80320; 81003; 81025; 83605; 83690; 85025; 87040; 87077; 87086; 87186; 96365; 96375; 99285; J2405; J2543; J7030; Z7610; A4315; G0480

== ENCOUNTER 2020-07-30 02:26 | Emergency (ER) | payer MEDICAID, OTHER ==
[~2020-07-30] VITALS: Ht 170.2 cm; Wt 116.0 kg
[2020-07-30] MEDS ORDERED: KETOROLAC 30MG/ML VIAL IV STA (03:00)
[2020-07-30 03:16] LABS: BASOPHILS % 0.6 % (0.0-2.0); EOSINOPHILS % 0.9 % (0.0-5.0); HEMATOCRIT. 37.8 % (36.0-48.0); HEMOGLOBIN. 12.7 g/dL (12.0-16.0); LYMPHOCYTES % 23.5 % (20.0-50.0); MEAN CORPUSCULAR HEMOGLOBIN 26.4 pg (28.0-32.0); MEAN CORPUSCULAR VOLUME 78.7 fL (81.0-99.0); MONOCYTES % 7.8 % (2.0-8.0); NEUTROPHILS % 67.2 % (40.0-76.0); PLATELET 284 x1000/uL (130-400); RED BLOOD CELL COUNT 4.81 mill/uL (4.2-5.4); RED CELL DISTRIBUTION WIDTH 15.8 % (11.6-14.6)
[2020-07-30 03:23] LABS: CHLORIDE 110 mEq/L (98-107)
[2020-07-30 03:25] LABS: INR 0.9; PROTHROMBIN TIME 10.1 sec (9.6-11.0)
[2020-07-30 04:17] LABS: HCG SCREEN NEGATIVE
[2020-07-30 04:55] LABS: CLARITY URINE TURBID (CLEAR); COLOR URINE YELLOW (YELLOW); KETONES URINE TRACE (NEGATIVE); LEUKOCYTE ESTERASE URINE 3+ (NEGATIVE); NITRITE URINE NEGATIVE (NEGATIVE); OCCULT BLOOD URINE 3+ (NEGATIVE); PH URINE 7.5 (4.5-8.0); PROTEIN URINE 3+ (NEGATIVE); SPECIFIC GRAVITY URINE 1.022 (1.005-1.030)
[2020-07-30] MEDS ORDERED: CIPR-263 MT (05:22)
[2020-07-30] MEDS ORDERED: CEFTRIAXONE 1 G PREMIX 50 ML IV ONE (05:30)
[2020-07-30] MEDS ORDERED: CEPH250C2 PO (05:34)
[2020-07-30 06:00] VITALS: BP 140/88
== END 2020-07-30 07:30 | disposition home or self-care (01) ==
LOC: ER 02:26
DX: N30.00 Acute cystitis without hematuria (principal); N23 Unspecified renal colic; Z87.440 Personal history of urinary (tract) infections; Z98.890 Other specified postprocedural states; Z79.899 Other long term (current) drug therapy
CPT/HCPCS: 36415; 74176; 80053; 81003; 81025; 84703; 85025; 85610; 87086; 96365; 96375; 99284; J0696; J1885

== ENCOUNTER 2020-10-23 17:00 | Emergency (ER) | payer MEDICAID, OTHER ==
[~2020-10-23] VITALS: Ht 170.2 cm; Wt 116.0 kg
[~2020-10-23 17:00] MED LIST changes: -AMOX1TAB15 PO; +CEPH250C2 PO
[2020-10-23] MEDS ORDERED: KETOROLAC 30MG/ML VIAL IV STA (20:13)
[2020-10-23] MEDS ORDERED: SODIUM CHLORIDE 0.9% 1,000 ML IV ONE (20:15)
[2020-10-23] MEDS ORDERED: PIPERACILLIN/TAZ 3.375G PREMIX 50 ML IV ONE (20:30)
[2020-10-23] MEDS ORDERED: SODIUM CHLORIDE 0.9% 1000ML BAG (SEPSIS BOLUS) IV ONE (20:30)
[2020-10-23] MEDS ORDERED: ACETAMINOPHEN 325MG TABLET PO ONE (20:30)
[2020-10-23 20:42] LABS: CLARITY URINE TURBID (CLEAR); COLOR URINE YELLOW (YELLOW); KETONES URINE NEGATIVE (NEGATIVE); LEUKOCYTE ESTERASE URINE 3+ (NEGATIVE); NITRITE URINE POSITIVE (NEGATIVE); OCCULT BLOOD URINE 2+ (NEGATIVE); PH URINE 6.5 (4.5-8.0); PROTEIN URINE 3+ (NEGATIVE); SPECIFIC GRAVITY URINE 1.015 (1.005-1.030)
[2020-10-23 21:06] LABS: BASOPHILS % 0.2 % (0.0-2.0); HEMOGLOBIN. 13.4 g/dL (12.0-16.0); LYMPHOCYTES % 12.3 % (20.0-50.0); MEAN CORPUSCULAR HEMOGLOBIN 26.6 pg (28.0-32.0); MEAN CORPUSCULAR VOLUME 79.6 fL (81.0-99.0); MEAN PLATELET VOLUME 8.5 fl (7.4-10.4); NEUTROPHILS % 78.5 % (40.0-76.0); PLATELET 254 x1000/uL (130-400); RED BLOOD CELL COUNT 5.03 mill/uL (4.2-5.4); RED CELL DISTRIBUTION WIDTH 16.1 % (11.6-14.6)
[2020-10-23 21:11] LABS: CHLORIDE 101 mEq/L (98-107)
[2020-10-23 21:19] LABS: HCG SCREEN NEGATIVE
[2020-10-24 07:16] VITALS: BP 157/95
== END 2020-10-24 07:29 | disposition short-term general hospital (02) ==
LOC: ER 17:20 → CANBEDREQ 10-24 03:58 → ER 10-24 07:29
DX: N10 Acute pyelonephritis (principal); Z87.440 Personal history of urinary (tract) infections; Z98.890 Other specified postprocedural states
CPT/HCPCS: 36415; 71045; 73560; 74176; 80053; 81003; 81025; 83605; 83690; 84703; 85025; 87040; 87077; 87086; 87186; 93005; 96365; 96375; 99285; J1885; J2543; J7030; 96361

== ENCOUNTER 2021-03-27 14:28 | Emergency (ER) | payer MEDICAID, OTHER ==
[~2021-03-27] VITALS: Ht 170.2 cm; Wt 109.0 kg
[2021-03-27] MEDS ORDERED: ONDANSETRON HCL 4MG/2ML INJ IV STA (15:47)
[2021-03-27] MEDS ORDERED: MORPHINE SULFATE 4 MG/ML CPJ (NOT FOR IM USE) IV STA (15:47)
[2021-03-27 15:58] LABS: HEMATOCRIT. 38.9 % (36.0-48.0); MEAN CORPUSCULAR VOLUME 80.6 fL (81.0-99.0); MEAN PLATELET VOLUME 8.7 fl (7.4-10.4); PLATELET 236 x1000/uL (130-400); RED BLOOD CELL COUNT 4.82 mill/uL (4.2-5.4)
[2021-03-27] MEDS ORDERED: MORPHINE SULFATE 2 MG/ML CPJ (NOT FOR IM USE) IV NR (16:00)
[2021-03-27] MEDS ORDERED: SODIUM CHLORIDE 0.9% 1,000 ML IV ONE (16:00)
[2021-03-27 16:04] LABS: CHLORIDE 105 mEq/L (98-107); CLARITY URINE TURBID (CLEAR); COLOR URINE YELLOW (YELLOW); KETONES URINE NEGATIVE (NEGATIVE); LEUKOCYTE ESTERASE URINE 3+ (NEGATIVE); NITRITE URINE NEGATIVE (NEGATIVE); OCCULT BLOOD URINE 3+ (NEGATIVE); PH URINE 6.5 (4.5-8.0); PROTEIN URINE 4+ (NEGATIVE); SPECIFIC GRAVITY URINE 1.016 (1.005-1.030); UROBILINOGEN URINE 0.2 E.U./dL (0.2-1.0)
[2021-03-27 16:28] LABS: B-HCG QUANTITATIVE 4284 mIU/mL (<3)
[2021-03-27 16:48] LABS: PLATELET ESTIMATE NORMAL
[2021-03-27] MEDS ORDERED: CEPH500C2 MT (18:12)
[2021-03-27] MEDS ORDERED: CEFTRIAXONE 1 G PREMIX 50 ML IV ONE (18:15)
[2021-03-27] MEDS ORDERED: ONDA4TAB11 PO (18:17)
[2021-03-27 20:03] VITALS: BP 155/84
== END 2021-03-27 20:52 | disposition home or self-care (01) ==
LOC: ER 14:28
DX: O23.01 Infections of kidney in pregnancy, first trimester (principal); Z3A.01 Less than 8 weeks gestation of pregnancy
CPT/HCPCS: 36415; 76705; 76801; 76817; 80053; 81003; 81025; 83690; 84702; 85025; 87077; 87086; 93005; 96361; 96365; 96375; 99285; J0696; J2270; J2405; J7030; Z7610

== ENCOUNTER 2021-04-20 14:02 | Inpatient (IN) | payer OTHER ==
[~2021-04-20] VITALS: Ht 162.6 cm; Wt 112.0 kg
[~2021-04-20 14:02] MED LIST changes: +CEPH500C2 MT; +ONDA4TAB11 PO
[2021-04-20 21:08] LABS: BASOPHILS % 0.2 % (0.0-2.0); CHLORIDE 105 mEq/L (98-107); EOSINOPHILS % 0.7 % (0.0-5.0); HEMATOCRIT. 40.8 % (36.0-48.0); HEMOGLOBIN. 13.3 g/dL (12.0-16.0); LYMPHOCYTES % 14.8 % (20.0-50.0); MEAN CORPUSCULAR HEMOGLOBIN 26.4 pg (28.0-32.0); MEAN PLATELET VOLUME 8.6 fl (7.4-10.4); MONOCYTES % 8.4 % (2.0-8.0); NEUTROPHILS % 75.9 % (40.0-76.0); PLATELET 252 x1000/uL (130-400); RED BLOOD CELL COUNT 5.04 mill/uL (4.2-5.4); RED CELL DISTRIBUTION WIDTH 15.6 % (11.6-14.6)
[2021-04-20 21:31] LABS: B-HCG QUANTITATIVE 57076 mIU/mL (<3)
[2021-04-20 21:53] LABS: CLARITY URINE TURBID (CLEAR); COLOR URINE YELLOW (YELLOW); KETONES URINE NEGATIVE (NEGATIVE); LEUKOCYTE ESTERASE URINE 3+ (NEGATIVE); NITRITE URINE NEGATIVE (NEGATIVE); OCCULT BLOOD URINE 3+ (NEGATIVE); PROTEIN URINE 3+ (NEGATIVE); SPECIFIC GRAVITY URINE 1.015 (1.005-1.030); UROBILINOGEN URINE 0.2 E.U./dL (0.2-1.0)
[2021-04-20] MEDS ORDERED: CEPHALEXIN 250MG CAPSULE PO NR (23:30)
[2021-04-20] MEDS ORDERED: CEFTRIAXONE 1 G PREMIX 50 ML IV NR (23:45)
[2021-04-21 10:13] VITALS: BP 128/74
[2021-04-21 10:16] VITALS: BP 128/74
[2021-04-21 12:22] VITALS: BP 124/74
[2021-04-21 16:01] VITALS: BP 154/88
[2021-04-21] MEDS ORDERED: ACETAMINOPHEN WITH CODEINE 300/30MG TABLET PO PRN (19:00)
[2021-04-21 20:28] VITALS: BP 150/84
[2021-04-21] MEDS: CEFTRIAXONE 1,000 MG in DEXTROSE 5% WATER 50 ML IV SCH (22:28)
[2021-04-21] MEDS: MORPHINE SULFATE 2 MG/ML CPJ (NOT FOR IM USE) IV PRN (22:29)
[2021-04-22 00:16] VITALS: BP 149/85
[2021-04-22 04:00] VITALS: BP 135/74
[2021-04-22 05:53] LABS: BASOPHILS % 0.1 % (0.0-2.0); CHLORIDE 103 mEq/L (98-107); EOSINOPHILS % 0.3 % (0.0-5.0); HEMATOCRIT. 36.2 % (36.0-48.0); HEMOGLOBIN. 12.5 g/dL (12.0-16.0); LYMPHOCYTES % 12.5 % (20.0-50.0); MEAN CORPUSCULAR HEMOGLOBIN 27.5 pg (28.0-32.0); MEAN CORPUSCULAR VOLUME 79.8 fL (81.0-99.0); MEAN PLATELET VOLUME 8.7 fl (7.4-10.4); MONOCYTES % 9.6 % (2.0-8.0); NEUTROPHILS % 77.5 % (40.0-76.0); PLATELET 209 x1000/uL (130-400); RED BLOOD CELL COUNT 4.54 mill/uL (4.2-5.4); RED CELL DISTRIBUTION WIDTH 15.6 % (11.6-14.6)
[2021-04-22 08:00] VITALS: BP 165/95
[2021-04-22] MEDS: ACETAMINOPHEN WITH CODEINE 300/60MG TABLET PO PRN ×2 (08:55→17:40)
[2021-04-22 12:00] VITALS: BP 139/75
[2021-04-22] MEDS ORDERED: POTASSIUM CHLORIDE 20MEQ/PACKET PO SCH (12:00)
[2021-04-22] MEDS ORDERED: NALOXONE HCL 0.4MG/ML VIAL IV PRN (12:00)
[2021-04-22 16:00] VITALS: BP 142/91
[2021-04-22 20:00] VITALS: BP 137/89
[2021-04-22] MEDS: CEFTRIAXONE 1,000 MG in DEXTROSE 5% WATER 50 ML IV SCH (22:21)
[2021-04-23] VITALS: BP 131/82
[2021-04-23] MEDS: MORPHINE SULFATE 2 MG/ML CPJ (NOT FOR IM USE) IV PRN (00:57)
[2021-04-23 04:14] VITALS: BP 142/90
[2021-04-23 05:51] LABS: BASOPHILS % 0.3 % (0.0-2.0); EOSINOPHILS % 0.9 % (0.0-5.0); HEMATOCRIT. 38.6 % (36.0-48.0); HEMOGLOBIN. 12.9 g/dL (12.0-16.0); LYMPHOCYTES % 19.3 % (20.0-50.0); MEAN CORPUSCULAR HEMOGLOBIN 26.8 pg (28.0-32.0); MEAN CORPUSCULAR VOLUME 79.9 fL (81.0-99.0); MEAN PLATELET VOLUME 8.8 fl (7.4-10.4); MONOCYTES % 8.8 % (2.0-8.0); NEUTROPHILS % 70.7 % (40.0-76.0); PLATELET 245 x1000/uL (130-400); RED BLOOD CELL COUNT 4.83 mill/uL (4.2-5.4); RED CELL DISTRIBUTION WIDTH 15.3 % (11.6-14.6)
[2021-04-23 06:35] LABS: CHLORIDE 106 mEq/L (98-107)
[2021-04-23 08:00] VITALS: BP 119/95
[2021-04-23] MEDS ORDERED: PHENYLEPHRINE HCL 10 MG/ML 1ML (IV VIAL) IV ONE (08:16)
[2021-04-23 12:00] VITALS: BP 114/71
[2021-04-23] MEDS ORDERED: CEPH500C2 MT (12:27)
[2021-04-23 16:00] VITALS: BP 133/73
[2021-04-23 17:53] VITALS: BP 133/73
== END 2021-04-23 19:00 | disposition home or self-care (01) | DRG 566 ==
LOC: ER 14:02 → 6WST 04-21 05:31 → EDBEDREQ 04-21 05:32 → ENRESERV 04-21 07:33
PROVIDERS: ADMIT Internal Medicine; ATTEND Internal Medicine
PROC: 0T768DZ Dilation of Right Ureter with Intraluminal Device, Via Natural or Artificial Opening Endoscopic (ICD-10-PCS; principal; 2021-04-23)
DX: O23.01 Infections of kidney in pregnancy, first trimester (principal); O16.1 Unspecified maternal hypertension, first trimester; O99.281 Endocrine, nutritional and metabolic diseases complicating pregnancy, first trimester; N13.6 Pyonephrosis; E66.01 Morbid (severe) obesity due to excess calories; O99.211 Obesity complicating pregnancy, first trimester; E87.6 Hypokalemia; O26.891 Other specified pregnancy related conditions, first trimester; R16.2 Hepatomegaly with splenomegaly, not elsewhere classified; Z20.822 Contact with and (suspected) exposure to COVID-19; F17.200 Nicotine dependence, unspecified, uncomplicated; O99.331 Smoking (tobacco) complicating pregnancy, first trimester; Z3A.09 9 weeks gestation of pregnancy; Z79.899 Other long term (current) drug therapy
CPT/HCPCS: 36415; 74018; 76000; 76700; 76770; 76801; 80048; 80053; 81003; 82962; 84702; 85025; 87426; 93005; 99285; C2617; J0696; J2270; J2370; J7030; J7040; J7060

== ENCOUNTER 2021-06-29 05:46 | Inpatient (IN) | payer OTHER ==
[~2021-06-29] VITALS: Ht 170.2 cm; Wt 99.8 kg
[~2021-06-29 05:46] MED LIST changes: -CEPH250C2 PO; -IBUP-2029 PO; -ONDA4TAB11 PO
[2021-06-29] MEDS ORDERED: ACETAMINOPHEN 325MG TABLET PO STA ×2 (06:11→11:47)
[2021-06-29] MEDS ORDERED: VANCOMYCIN 1G PREMIX 200 ML IV ONE (06:15)
[2021-06-29] MEDS ORDERED: SODIUM CHLORIDE 0.9% 1000ML BAG (SEPSIS BOLUS) IV ONE (06:15)
[2021-06-29] MEDS ORDERED: PIPERACILLIN/TAZ 3.375G PREMIX 50 ML IV ONE (06:15)
[2021-06-29 07:08] LABS: HEMATOCRIT. 34.1 % (36.0-48.0); HEMOGLOBIN. 11.5 g/dL (12.0-16.0); MEAN CORPUSCULAR HEMOGLOBIN 27.7 pg (28.0-32.0); MEAN CORPUSCULAR VOLUME 82.2 fL (81.0-99.0); MEAN PLATELET VOLUME 8.8 fl (7.4-10.4); PLATELET 189 x1000/uL (130-400); RED BLOOD CELL COUNT 4.15 mill/uL (4.2-5.4); RED CELL DISTRIBUTION WIDTH 18.2 % (11.6-14.6)
[2021-06-29 07:14] LABS: CHLORIDE 101 mEq/L (98-107)
[2021-06-29 07:41] LABS: PLATELET ESTIMATE NORMAL
[2021-06-29 08:31] LABS: CLARITY URINE CLOUDY (CLEAR); COLOR URINE YELLOW (YELLOW); KETONES URINE NEGATIVE (NEGATIVE); LEUKOCYTE ESTERASE URINE 3+ (NEGATIVE); NITRITE URINE POSITIVE (NEGATIVE); OCCULT BLOOD URINE 2+ (NEGATIVE); PROTEIN URINE 3+ (NEGATIVE); SPECIFIC GRAVITY URINE 1.017 (1.005-1.030)
[2021-06-29] MEDS ORDERED: ONDANSETRON HCL 4MG/2ML INJ IV STA (11:47)
[2021-06-29] MEDS ORDERED: ONDANSETRON HCL 4MG/2ML INJ IV PRN (13:45)
[2021-06-29] MEDS ORDERED: IPRATROPIUM/ALBUTEROL 0.5-3(2.5)MG/3ML NEB HHN PRN (13:45)
[2021-06-29] MEDS ORDERED: ACETAMINOPHEN 325MG TABLET PO PRN ×2 (13:45)
[2021-06-29] MEDS: PIPERACILLIN/TAZOBACTAM 3.375 G in DEXTROSE 5% WATER 50 ML IV SCH (16:47)
[2021-06-29] MEDS: PRENATAL VIT/FE FUMARATE/FA TABLET PO SCH (16:47)
[2021-06-29] MEDS: SODIUM CHLORIDE 0.9% 1,000 ML IV SCH (16:48)
[2021-06-29 22:00] VITALS: BP 133/86
[2021-06-30] VITALS (7 sets, daily range): BP systolic 117–130; BP diastolic 70–88
[2021-06-30] MEDS: SODIUM CHLORIDE 0.9% 1,000 ML IV SCH ×3 (04:17→20:26)
[2021-06-30] MEDS: PIPERACILLIN/TAZOBACTAM 3.375 G in DEXTROSE 5% WATER 50 ML IV SCH ×3 (05:58→20:26)
[2021-06-30 06:34] LABS: BASOPHILS % 0.1 % (0.0-2.0); EOSINOPHILS % 0.1 % (0.0-5.0); HEMATOCRIT. 31.6 % (36.0-48.0); HEMOGLOBIN. 10.5 g/dL (12.0-16.0); LYMPHOCYTES % 8.2 % (20.0-50.0); MEAN CORPUSCULAR HEMOGLOBIN 27.4 pg (28.0-32.0); MEAN CORPUSCULAR VOLUME 82.1 fL (81.0-99.0); MONOCYTES % 8.1 % (2.0-8.0); NEUTROPHILS % 83.5 % (40.0-76.0); PLATELET 196 x1000/uL (130-400); RED BLOOD CELL COUNT 3.84 mill/uL (4.2-5.4); RED CELL DISTRIBUTION WIDTH 18.1 % (11.6-14.6)
[2021-06-30 06:52] LABS: CHLORIDE 104 mEq/L (98-107)
[2021-06-30 06:58] LABS: TOTAL IRON BINDING CAPACITY 259 ug/dL (250-450)
[2021-06-30 07:25] LABS: FOLIC ACID (FOLATE) SERUM 15.3 ng/mL (>5.38)
[2021-06-30] MEDS ORDERED: POTASSIUM CHLORIDE 20MEQ TABLET SR PO NR (08:37)
[2021-06-30] MEDS: PRENATAL VIT/FE FUMARATE/FA TABLET PO SCH (14:41)
[2021-07-01] VITALS: BP 102/52
[2021-07-01 04:00] VITALS: BP 107/65
[2021-07-01] MEDS: SODIUM CHLORIDE 0.9% 1,000 ML IV SCH ×3 (04:54→22:14)
[2021-07-01] MEDS: PIPERACILLIN/TAZOBACTAM 3.375 G in DEXTROSE 5% WATER 50 ML IV SCH ×3 (05:35→22:14)
[2021-07-01 08:00] VITALS: BP 104/57
[2021-07-01 08:18] LABS: BASOPHILS % 0.1 % (0.0-2.0); EOSINOPHILS % 0.9 % (0.0-5.0); HEMATOCRIT. 28.2 % (36.0-48.0); HEMOGLOBIN. 9.7 g/dL (12.0-16.0); LYMPHOCYTES % 12.6 % (20.0-50.0); MEAN CORPUSCULAR HEMOGLOBIN 27.7 pg (28.0-32.0); MEAN CORPUSCULAR VOLUME 80.8 fL (81.0-99.0); MEAN PLATELET VOLUME 9.1 fl (7.4-10.4); MONOCYTES % 7.7 % (2.0-8.0); NEUTROPHILS % 78.7 % (40.0-76.0); PLATELET 170 x1000/uL (130-400); RED BLOOD CELL COUNT 3.49 mill/uL (4.2-5.4); RED CELL DISTRIBUTION WIDTH 18.2 % (11.6-14.6)
[2021-07-01 08:49] LABS: CHLORIDE 109 mEq/L (98-107)
[2021-07-01] MEDS: PRENATAL VIT/FE FUMARATE/FA TABLET PO SCH (10:00)
[2021-07-01 12:00] VITALS: BP 110/58
[2021-07-01 16:00] VITALS: BP 104/56
[2021-07-01 20:00] VITALS: BP 111/63
[2021-07-01] MEDS ORDERED: POTASSIUM CHLORIDE 20MEQ TABLET SR PO NR (20:00)
[2021-07-02] VITALS: BP 116/74
[2021-07-02 04:00] VITALS: BP 116/71
[2021-07-02] MEDS: PIPERACILLIN/TAZOBACTAM 3.375 G in DEXTROSE 5% WATER 50 ML IV SCH ×2 (05:38→14:35)
[2021-07-02 06:11] LABS: BASOPHILS % 0.1 % (0.0-2.0); EOSINOPHILS % 0.8 % (0.0-5.0); HEMATOCRIT. 28.8 % (36.0-48.0); HEMOGLOBIN. 10.1 g/dL (12.0-16.0); LYMPHOCYTES % 15.4 % (20.0-50.0); MEAN CORPUSCULAR HEMOGLOBIN 28.1 pg (28.0-32.0); MEAN CORPUSCULAR VOLUME 80.3 fL (81.0-99.0); MEAN PLATELET VOLUME 8.2 fl (7.4-10.4); MONOCYTES % 8.1 % (2.0-8.0); NEUTROPHILS % 75.6 % (40.0-76.0); PLATELET 199 x1000/uL (130-400); RED BLOOD CELL COUNT 3.59 mill/uL (4.2-5.4); RED CELL DISTRIBUTION WIDTH 17.8 % (11.6-14.6)
[2021-07-02 08:30] VITALS: BP 103/63
[2021-07-02 09:11] LABS: CHLORIDE 110 mEq/L (98-107)
[2021-07-02] MEDS: PRENATAL VIT/FE FUMARATE/FA TABLET PO SCH (09:19)
[2021-07-02] MEDS: SODIUM CHLORIDE 0.9% 1,000 ML IV SCH ×2 (09:19→16:42)
[2021-07-02 12:00] VITALS: BP 113/68
[2021-07-02 16:30] VITALS: BP 123/71
[2021-07-02] MEDS ORDERED: POTASSIUM CHLORIDE 20MEQ TABLET SR PO NR (17:45)
[2021-07-02 20:00] VITALS: BP 118/66
[2021-07-02] MEDS ORDERED: CEFTRIAXONE 2 G PREMIX 50 ML IV SCH (20:30)
[2021-07-02] MEDS: CEFTRIAXONE 2 G in DEXTROSE 5% WATER 50 ML IV SCH (22:39)
[2021-07-03] VITALS: BP 99/55
[2021-07-03] MEDS: SODIUM CHLORIDE 0.9% 1,000 ML IV SCH ×3 (02:32→21:01)
[2021-07-03 04:00] VITALS: BP 102/59
[2021-07-03 06:59] LABS: BASOPHILS % 0.2 % (0.0-2.0); EOSINOPHILS % 1.1 % (0.0-5.0); HEMATOCRIT. 28.7 % (36.0-48.0); HEMOGLOBIN. 9.9 g/dL (12.0-16.0); LYMPHOCYTES % 20.4 % (20.0-50.0); MEAN CORPUSCULAR HEMOGLOBIN 27.8 pg (28.0-32.0); MEAN CORPUSCULAR VOLUME 80.8 fL (81.0-99.0); MEAN PLATELET VOLUME 7.9 fl (7.4-10.4); MONOCYTES % 9.4 % (2.0-8.0); NEUTROPHILS % 68.9 % (40.0-76.0); PLATELET 232 x1000/uL (130-400); RED BLOOD CELL COUNT 3.55 mill/uL (4.2-5.4); RED CELL DISTRIBUTION WIDTH 17.8 % (11.6-14.6)
[2021-07-03 07:39] LABS: CHLORIDE 109 mEq/L (98-107)
[2021-07-03 07:46] VITALS: BP 112/70
[2021-07-03] MEDS: PRENATAL VIT/FE FUMARATE/FA TABLET PO SCH (08:58)
[2021-07-03 12:00] VITALS: BP 116/53
[2021-07-03] MEDS: IRON SUCROSE COMPLEX 100 MG/5 ML ML IV SCH (12:30)
[2021-07-03 15:39] VITALS: BP 102/70
[2021-07-03 20:00] VITALS: BP 137/83
[2021-07-03] MEDS: CEFTRIAXONE 2 G in DEXTROSE 5% WATER 50 ML IV SCH (21:09)
[2021-07-04] VITALS: BP 123/72
[2021-07-04 04:00] VITALS: BP 134/78
[2021-07-04] MEDS: SODIUM CHLORIDE 0.9% 1,000 ML IV SCH ×2 (06:59→14:40)
[2021-07-04 07:19] LABS: BASOPHILS % 0.2 % (0.0-2.0); EOSINOPHILS % 1.7 % (0.0-5.0); HEMATOCRIT. 27.5 % (36.0-48.0); HEMOGLOBIN. 9.7 g/dL (12.0-16.0); LYMPHOCYTES % 22.6 % (20.0-50.0); MEAN CORPUSCULAR HEMOGLOBIN 28.4 pg (28.0-32.0); MEAN CORPUSCULAR VOLUME 80.5 fL (81.0-99.0); MEAN PLATELET VOLUME 7.7 fl (7.4-10.4); MONOCYTES % 8.9 % (2.0-8.0); NEUTROPHILS % 66.6 % (40.0-76.0); PLATELET 219 x1000/uL (130-400); RED BLOOD CELL COUNT 3.42 mill/uL (4.2-5.4); RED CELL DISTRIBUTION WIDTH 17.4 % (11.6-14.6)
[2021-07-04 07:36] LABS: CHLORIDE 112 mEq/L (98-107)
[2021-07-04 08:09] VITALS: BP 123/78
[2021-07-04] MEDS: PRENATAL VIT/FE FUMARATE/FA TABLET PO SCH (09:04)
[2021-07-04] MEDS: IRON SUCROSE COMPLEX 100 MG/5 ML ML IV SCH (09:05)
[2021-07-04 12:05] VITALS: BP 127/82
[2021-07-04 15:22] VITALS: BP 129/83
[2021-07-04 16:19] VITALS: BP 129/83
[2021-07-04] MEDS ORDERED: CEFTRIAXONE SODIUM IM NR (16:30)
[2021-07-04] MEDS ORDERED: LIDOCAINE HCL/PF 1% 10 MG/ML 5ML VIAL IJ SCH (16:45)
[2021-07-04] MEDS ORDERED: PNEUMOCOCCAL 23-VAL P-SAC VAC 0.5 ML IM ONE (17:15)
[2021-07-04] MEDS ORDERED: INFLUENZA VACCINE 05/PF 0.5 ML SYRINGE IM ONE (17:15)
== END 2021-07-04 18:51 | disposition home health service (06) | DRG 566 ==
LOC: ER 05:46 → MICUSO 11:24 → EDBEDREQ 11:27 → EDBEDREQTM 11:27 → 5WST 20:59
PROVIDERS: ADMIT Internal Medicine; ATTEND Internal Medicine
DX: O98.812 Other maternal infectious and parasitic diseases complicating pregnancy, second trimester (principal); A41.9 Sepsis, unspecified organism; N13.6 Pyonephrosis; E87.1 Hypo-osmolality and hyponatremia; O23.02 Infections of kidney in pregnancy, second trimester; O99.012 Anemia complicating pregnancy, second trimester; O99.282 Endocrine, nutritional and metabolic diseases complicating pregnancy, second trimester; O99.820 Streptococcus B carrier state complicating pregnancy; Z20.822 Contact with and (suspected) exposure to COVID-19; O99.212 Obesity complicating pregnancy, second trimester; D50.9 Iron deficiency anemia, unspecified; R31.9 Hematuria, unspecified; N20.0 Calculus of kidney; B96.20 Unspecified Escherichia coli [E. coli] as the cause of diseases classified elsewhere; Z3A.19 19 weeks gestation of pregnancy
CPT/HCPCS: 36415; 76770; 76805; 80048; 80053; 81003; 82607; 82728; 82746; 83540; 83550; 83605; 84145; 85025; 87077; 87186; 87426; 93005; 99285; J0696; J2405; J2543; J3370; J3490; J7030; J7060

== ENCOUNTER 2021-09-27 18:12 | Emergency (ER) | payer OTHER ==
[~2021-09-27] VITALS: Ht 170.2 cm; Wt 113.0 kg
[~2021-09-27 18:12] MED LIST changes: -CEPH500C2 MT; +PNV1TABL50 PO; +[UNRECOGNIZED DRUG - OTHER]
[2021-09-27] MEDS ORDERED: ACETAMINOPHEN 325MG TABLET PO ONE (19:15)
[2021-09-27 20:27] LABS: BASOPHILS % 0.2 % (0.0-2.0); EOSINOPHILS % 0.8 % (0.0-5.0); HEMATOCRIT. 35.9 % (36.0-48.0); HEMOGLOBIN. 12.6 g/dL (12.0-16.0); LYMPHOCYTES % 20.3 % (20.0-50.0); MEAN CORPUSCULAR VOLUME 85.7 fL (81.0-99.0); MEAN PLATELET VOLUME 10.1 fl (7.4-10.4); MONOCYTES % 6.7 % (2.0-8.0); PLATELET 149 x1000/uL (130-400); RED BLOOD CELL COUNT 4.19 mill/uL (4.2-5.4); RED CELL DISTRIBUTION WIDTH 13.8 % (11.6-14.6)
[2021-09-27 20:36] LABS: CHLORIDE 110 mEq/L (98-107)
[2021-09-27 21:01] LABS: CLARITY URINE CLEAR (CLEAR); COLOR URINE YELLOW (YELLOW); KETONES URINE NEGATIVE (NEGATIVE); LEUKOCYTE ESTERASE URINE 2+ (NEGATIVE); NITRITE URINE NEGATIVE (NEGATIVE); OCCULT BLOOD URINE 1+ (NEGATIVE); PH URINE 6.5 (4.5-8.0); PROTEIN URINE 3+ (NEGATIVE); SPECIFIC GRAVITY URINE 1.016 (1.005-1.030); UROBILINOGEN URINE 0.2 E.U./dL (0.2-1.0)
[2021-09-27 21:30] VITALS: BP 175/99
== END 2021-09-27 23:00 | disposition home or self-care (01) ==
LOC: ER 18:12
DX: O26.893 Other specified pregnancy related conditions, third trimester (principal); O14.93 Unspecified pre-eclampsia, third trimester; O10.013 Pre-existing essential hypertension complicating pregnancy, third trimester; O09.523 Supervision of elderly multigravida, third trimester; Z3A.30 30 weeks gestation of pregnancy; S92.912A Unspecified fracture of left toe(s), initial encounter for closed fracture; W22.8XXA Striking against or struck by other objects, initial encounter; Y93.89 Activity, other specified; Y92.9 Unspecified place or not applicable; Z98.890 Other specified postprocedural states
CPT/HCPCS: 36415; 73630; 76805; 80053; 81003; 83615; 84550; 85025; 99285; Z7610

== ENCOUNTER 2021-09-27 23:35 | Observation (INO) | payer OTHER ==
[~2021-09-27] VITALS: Ht 170.2 cm; Wt 115.7 kg
[2021-09-28] MEDS ORDERED: DEXT 5%/LR + PITOCIN 20UNITS/L 1,000 ML IV SCH (01:00)
[2021-09-28] MEDS ORDERED: NALOXONE HCL 0.4 MG/ML 1ML VIAL IM PRN (01:00)
[2021-09-28] MEDS ORDERED: MAGNESIUM 2 G PREMIX 50 ML IV SCH (01:15)
[2021-09-28] MEDS ORDERED: BETAMETHASONE ACET/BETAMET 30 MG/5 ML VIAL IM SCH (01:15)
[2021-09-28] MEDS ORDERED: MAGNESIUM 4 G PREMIX 100 ML IV SCH (01:15)
== END 2021-09-28 02:06 | disposition left against medical advice (07) ==
LOC: 8 EST LDRP 23:35
PROVIDERS: ADMIT Obstetrics & Gynecology; ATTEND Obstetrics & Gynecology
DX: O9A.213 Injury, poisoning and certain other consequences of external causes complicating pregnancy, third trimester (principal); S99.922A Unspecified injury of left foot, initial encounter; X58.XXXA Exposure to other specified factors, initial encounter; Y93.89 Activity, other specified; Y92.89 Other specified places as the place of occurrence of the external cause; Y99.8 Other external cause status; Z3A.32 32 weeks gestation of pregnancy
CPT/HCPCS: 99281; G0378; 59025; G0379

== ENCOUNTER 2022-12-24 00:25 | Emergency (ER) | payer OTHER ==
[~2022-12-24] VITALS: Ht 167.6 cm; Wt 118.0 kg
[2022-12-24 01:07] VITALS: BP 138/95; PULSE 102; RESP 17; TEMP 100.1; O2SAT 97
[2022-12-24] MEDS ORDERED: CEFTRIAXONE SODIUM 1 G/VIAL IM ONE (05:15)
[2022-12-24] MEDS ORDERED: DEXAMETHASONE 4MG TABLET PO ONE (05:15)
[2022-12-24] MEDS ORDERED: IBUP-2030 MT (05:30)
[2022-12-24] MEDS ORDERED: AMOX1TAB16 MT (05:30)
== END 2022-12-24 05:46 | disposition home or self-care (01) ==
LOC: ER 00:25
DX: J36 Peritonsillar abscess (principal); Z20.822 Contact with and (suspected) exposure to COVID-19
CPT/HCPCS: 81025; 87430; 87070; 87804 ×2; 96372; 99283; 87426; J8540; J0696; C9803; Z7610 ×2

== ENCOUNTER 2023-04-12 22:10 | Emergency (ER) | payer MEDICAID, OTHER ==
[~2023-04-12] VITALS: Ht 170.2 cm; Wt 110.0 kg
[~2023-04-12 22:10] MED LIST changes: +AMOX1TAB16 MT; +IBUP-2030 MT
[2023-04-12 22:13] VITALS: BP 106/85; TEMP 99.2; O2SAT 100
[2023-04-12 22:20] VITALS: PULSE 110; RESP 20
[2023-04-12 22:47] LABS: CLARITY URINE TURBID (CLEAR); COLOR URINE YELLOW (YELLOW); GLUCOSE URINE NEGATIVE (NEGATIVE); KETONES URINE NEGATIVE (NEGATIVE); LEUKOCYTE ESTERASE URINE 3+ (NEGATIVE); NITRITE URINE NEGATIVE (NEGATIVE); OCCULT BLOOD URINE 3+ (NEGATIVE); PH URINE 6.5 (4.5-8.0); PROTEIN URINE 3+ (NEGATIVE); SPECIFIC GRAVITY URINE 1.015 (1.005-1.030)
[2023-04-12 22:59] LABS: BASOPHILS % 0.2 % (0.0-2.0); DIFFERENTIAL COMMENT 0; EOSINOPHILS % 0.6 % (0.0-5.0); HEMATOCRIT. 37.3 % (36.0-48.0); HEMOGLOBIN. 12.5 g/dL (12.0-16.0); LYMPHOCYTES % 16.4 % (20.0-50.0); MEAN CORPUSCULAR HGB CONC 33.4 g/dL (31.0-37.0); MEAN CORPUSCULAR VOLUME 77.9 fL (81.0-99.0); MEAN PLATELET VOLUME 7.7 fl (7.4-10.4); MONOCYTES % 11.8 % (2.0-8.0); PLATELET 398 x1000/uL (130-400); RED BLOOD CELL COUNT 4.79 mill/uL (4.2-5.4); RED CELL DISTRIBUTION WIDTH 14.8 % (11.6-14.6); WHITE BLOOD COUNT 9.7 x1000/uL (4.5-11.0)
[2023-04-12 23:06] LABS: BACTERIA URINE 4+; RBC URINE 15-25 /hpf (0-2); SQUAMOUS EPITHELIAL CELL URINE 1+ /lpf (RARE/1+); WBC URINE TNTC /hpf (0-2)
[2023-04-12 23:12] LABS: CHLORIDE 104 mEq/L (98-107); INDEX HEMOLYSI 1 (1-3); INDEX ICTERIC 1 (1-4); INDEX LIPEMIC 1 (1-3); POTASSIUM 4.1 mEq/L (3.5-5.1); SODIUM 135 mEq/L (136-145)
[2023-04-12 23:18] LABS: HCG SCREEN NEGATIVE
[2023-04-12 23:21] LABS: ALANINE AMINOTRANSFERASE 20 IU/L (13-61); ALBUMIN 2.7 g/dL (3.4-5.0); ASPARTATE AMINOTRANSFERASE 8 IU/L (15-37); BILIRUBIN TOTAL 0.4 mg/dL (0.1-1.0); CALCIUM 8.3 mg/dL (8.5-10.1); CARBON DIOXIDE 25 mEq/L (21-32); CREATININE 0.9 mg/dL (0.6-1.3); GLUCOSE 116 mg/dL (70-105); PROTEIN TOTAL 7.7 g/dL (6.0-8.3); UREA NITROGEN BLOOD 11 mg/dL (7-21)
[2023-04-13] MEDS ORDERED: CEFTRIAXONE 1GM PREMIX 50 ML IV ONE (00:30)
[2023-04-13] MEDS ORDERED: SODIUM CHLORIDE 0.9% 1,000 ML IV ONE (00:45)
[2023-04-13] MEDS ORDERED: CEFP200T13 MT (02:28)
[2023-04-13] MEDS ORDERED: CEPH500T MT (21:04)
== END 2023-04-13 00:49 | disposition left against medical advice (07) ==
LOC: ER 22:10
DX: N12 Tubulo-interstitial nephritis, not specified as acute or chronic (principal); Z98.890 Other specified postprocedural states; Z79.899 Other long term (current) drug therapy
CPT/HCPCS: 99284; 74176; 80053; 81003; 81025; 84703; 83690; 85025; 87086; 87077; 36415; J7030

== ENCOUNTER 2023-04-13 10:26 | Emergency (ER) | payer OTHER ==
[~2023-04-13] VITALS: Ht 162.6 cm; Wt 97.0 kg
[~2023-04-13 10:26] MED LIST changes: +CEFP200T13 MT
[2023-04-13 10:36] VITALS: O2SAT 98
[2023-04-13 11:56] LABS: BASOPHILS % 0.2 % (0.0-2.0); EOSINOPHILS % 0.4 % (0.0-5.0); HEMATOCRIT. 37.5 % (36.0-48.0); MEAN CORPUSCULAR HEMOGLOBIN 25.3 pg (28.0-32.0); MEAN CORPUSCULAR VOLUME 79.1 fL (81.0-99.0); MEAN PLATELET VOLUME 7.8 fl (7.4-10.4); MONOCYTES % 12.5 % (2.0-8.0); RED BLOOD CELL COUNT 4.74 mill/uL (4.2-5.4); RED CELL DISTRIBUTION WIDTH 15.2 % (11.6-14.6); WHITE BLOOD COUNT 9.4 x1000/uL (4.5-11.0)
[2023-04-13 12:36] LABS: ALBUMIN 2.6 g/dL (3.4-5.0); CALCIUM 8.3 mg/dL (8.5-10.1); CARBON DIOXIDE 21 mEq/L (21-32); CHLORIDE 105 mEq/L (98-107); GLUCOSE 104 mg/dL (70-105); INDEX HEMOLYSI 1 (1-3); INDEX ICTERIC 1 (1-4); INDEX LIPEMIC 1 (1-3); POTASSIUM 3.7 mEq/L (3.5-5.1); SODIUM 134 mEq/L (136-145); UREA NITROGEN BLOOD 10 mg/dL (7-21)
[2023-04-13 12:38] LABS: ALANINE AMINOTRANSFERASE 14 IU/L (13-61); CREATININE 0.9 mg/dL (0.6-1.3)
[2023-04-13 12:51] LABS: DIFFERENTIAL COMMENT 1; PLATELET 341 x1000/uL (130-400)
[2023-04-13 12:53] LABS: ASPARTATE AMINOTRANSFERASE 8 IU/L (15-37); BILIRUBIN TOTAL 0.3 mg/dL (0.1-1.0); PROTEIN TOTAL 7.5 g/dL (6.0-8.3)
[2023-04-13 14:11] LABS: CLARITY URINE TURBID (CLEAR); COLOR URINE YELLOW (YELLOW); GLUCOSE URINE NEGATIVE (NEGATIVE); KETONES URINE NEGATIVE (NEGATIVE); LEUKOCYTE ESTERASE URINE 3+ (NEGATIVE); NITRITE URINE NEGATIVE (NEGATIVE); OCCULT BLOOD URINE 3+ (NEGATIVE); PROTEIN URINE 3+ (NEGATIVE); SPECIFIC GRAVITY URINE 1.015 (1.005-1.030)
[2023-04-13 14:26] LABS: BACTERIA URINE 4+; SQUAMOUS EPITHELIAL CELL URINE NONE SEEN /lpf (RARE/1+)
[2023-04-13 14:27] LABS: RBC URINE 50-100 /hpf (0-2); WBC URINE TNTC /hpf (0-2)
[2023-04-13 15:58] LABS: HCG SCREEN NEGATIVE
[2023-04-13] MEDS ORDERED: SODIUM CHLORIDE 0.9% 1,000 ML IV ONE (18:00)
[2023-04-13] MEDS ORDERED: CEFTRIAXONE 1GM PREMIX 50 ML IV ONE (20:15)
[2023-04-13 20:38] VITALS: BP 127/72; PULSE 84; RESP 18; TEMP 98
[2023-04-13] MEDS ORDERED: CEPH500T MT (21:04)
== END 2023-04-14 07:43 | disposition left against medical advice (07) ==
LOC: ER 10:26
DX: N12 Tubulo-interstitial nephritis, not specified as acute or chronic (principal); Z87.442 Personal history of urinary calculi; Z98.890 Other specified postprocedural states
CPT/HCPCS: 99284; 74176; 80053; 81003; 81025; 84703; 83690; 85025; 87086; 87077; 36415; J7030

== ENCOUNTER 2023-05-07 23:14 | Emergency (ER) | payer OTHER ==
[~2023-05-07] VITALS: Ht 170.2 cm; Wt 117.0 kg
[~2023-05-07 23:14] MED LIST changes: +CEPH500T MT
[2023-05-07 23:20] VITALS: BP 139/98; RESP 20; O2SAT 99
[2023-05-07 23:21] VITALS: PULSE 104
[2023-05-08 02:04] LABS: CLARITY URINE TURBID (CLEAR); COLOR URINE YELLOW (YELLOW); GLUCOSE URINE NEGATIVE (NEGATIVE); KETONES URINE NEGATIVE (NEGATIVE); OCCULT BLOOD URINE 2+ (NEGATIVE); PH URINE 6.5 (4.5-8.0); PROTEIN URINE 3+ (NEGATIVE); SPECIFIC GRAVITY URINE 1.026 (1.005-1.030)
[2023-05-08 02:05] LABS: LEUKOCYTE ESTERASE URINE 3+ (NEGATIVE); NITRITE URINE POSITIVE (NEGATIVE); UROBILINOGEN URINE 1 E.U./dL (0.2-1.0)
[2023-05-08 02:14] LABS: BACTERIA URINE 3+; SQUAMOUS EPITHELIAL CELL URINE 1+ /lpf (RARE/1+); WBC URINE TNTC /hpf (0-2)
[2023-05-08 03:48] LABS: BASOPHILS % 0.5 % (0.0-2.0); DIFFERENTIAL COMMENT 0; EOSINOPHILS % 1.8 % (0.0-5.0); HEMATOCRIT. 31.1 % (36.0-48.0); LYMPHOCYTES % 32.8 % (20.0-50.0); MEAN CORPUSCULAR HEMOGLOBIN 25.1 pg (28.0-32.0); MEAN CORPUSCULAR HGB CONC 32.2 g/dL (31.0-37.0); MEAN CORPUSCULAR VOLUME 78.1 fL (81.0-99.0); MONOCYTES % 9.7 % (2.0-8.0); NEUTROPHILS % 55.2 % (40.0-76.0); PLATELET 333 x1000/uL (130-400); RED BLOOD CELL COUNT 3.98 mill/uL (4.2-5.4); RED CELL DISTRIBUTION WIDTH 16.7 % (11.6-14.6); WHITE BLOOD COUNT 4.9 x1000/uL (4.5-11.0)
[2023-05-08 04:09] LABS: ALANINE AMINOTRANSFERASE 9 IU/L (10-49); ALBUMIN 3.8 g/dL (3.2-4.8); ASPARTATE AMINOTRANSFERASE 9 IU/L (<34); BILIRUBIN TOTAL 0.3 mg/dL (0.1-1.0); CALCIUM 8.8 mg/dL (8.7-10.4); CARBON DIOXIDE 26 mEq/L (21-32); CHLORIDE 109 mEq/L (98-107); CREATININE 0.8 mg/dL (0.6-1.0); GLUCOSE 97 mg/dL (70-105); SODIUM 141 mEq/L (136-145); UREA NITROGEN BLOOD 9 mg/dL (9-23)
[2023-05-08 04:12] LABS: HCG SCREEN NEGATIVE
== END 2023-05-08 06:28 | disposition left against medical advice (07) ==
LOC: ER 23:14
DX: N20.0 Calculus of kidney (principal); Z87.442 Personal history of urinary calculi; Z98.890 Other specified postprocedural states
CPT/HCPCS: 36415; 80053; 81003; 81025; 83605; 84703; 85025; 99283

== ENCOUNTER 2023-06-23 10:48 | Inpatient (IN) | payer MEDICAID, OTHER ==
[~2023-06-23] VITALS: Ht 153.7 cm; Wt 99.8 kg
[2023-06-23 10:55] VITALS: O2SAT 98
[2023-06-23] MEDS ORDERED: VANCOMYCIN 1G PREMIX 200 ML IV SCH ×2 (11:15)
[2023-06-23] MEDS ORDERED: CEFEPIME 2,000 MG in DEXT 5% WATER 100 ML IV STA (11:15)
[2023-06-23 11:50] LABS: BASOPHILS % 0.5 % (0.0-2.0); DIFFERENTIAL COMMENT 0; EOSINOPHILS % 2.7 % (0.0-5.0); HEMATOCRIT. 33.6 % (36.0-48.0); HEMOGLOBIN. 10.7 g/dL (12.0-16.0); LYMPHOCYTES % 27.4 % (20.0-50.0); MEAN CORPUSCULAR HEMOGLOBIN 24.6 pg (28.0-32.0); MEAN CORPUSCULAR HGB CONC 31.9 g/dL (31.0-37.0); MEAN CORPUSCULAR VOLUME 77.2 fL (81.0-99.0); MEAN PLATELET VOLUME 7.8 fl (7.4-10.4); NEUTROPHILS % 61.4 % (40.0-76.0); PLATELET 287 x1000/uL (130-400); RED BLOOD CELL COUNT 4.35 mill/uL (4.2-5.4); RED CELL DISTRIBUTION WIDTH 18.4 % (11.6-14.6); WHITE BLOOD COUNT 5.5 x1000/uL (4.5-11.0)
[2023-06-23 12:09] LABS: HCG SCREEN NEGATIVE
[2023-06-23 12:12] LABS: ALANINE AMINOTRANSFERASE 7 IU/L (10-49); ALBUMIN 3.7 g/dL (3.2-4.8); ASPARTATE AMINOTRANSFERASE 10 IU/L (<34); BILIRUBIN TOTAL 0.3 mg/dL (0.1-1.0); CALCIUM 8.7 mg/dL (8.7-10.4); CARBON DIOXIDE 21 mEq/L (21-32); CHLORIDE 110 mEq/L (98-107); CREATININE 0.7 mg/dL (0.6-1.0); GLUCOSE 94 mg/dL (70-105); POTASSIUM 3.7 mEq/L (3.5-5.1); PROTEIN TOTAL 7.2 g/dL (6.0-8.3); SODIUM 139 mEq/L (136-145); UREA NITROGEN BLOOD 12 mg/dL (9-23)
[2023-06-23 12:17] LABS: CLARITY URINE TURBID (CLEAR); COLOR URINE YELLOW (YELLOW); GLUCOSE URINE NEGATIVE (NEGATIVE); KETONES URINE NEGATIVE (NEGATIVE); LEUKOCYTE ESTERASE URINE 3+ (NEGATIVE); NITRITE URINE POSITIVE (NEGATIVE); OCCULT BLOOD URINE 3+ (NEGATIVE); PH URINE 6.5 (4.5-8.0); PROTEIN URINE 3+ (NEGATIVE); SPECIFIC GRAVITY URINE 1.013 (1.005-1.030); UROBILINOGEN URINE 0.2 E.U./dL (0.2-1.0)
[2023-06-23 13:17] LABS: BACTERIA URINE 3+; SQUAMOUS EPITHELIAL CELL URINE 1+ /lpf (RARE/1+); WBC URINE TNTC /hpf (0-2); YEAST URINE NONE SEEN
[2023-06-23] MEDS ORDERED: IOHEXOL-350 100 ML BOTTLE ONE (14:01)
[2023-06-23] MEDS ORDERED: ACETAMINOPHEN 325MG TABLET PO PRN ×2 (18:30)
[2023-06-23] MEDS ORDERED: KETOROLAC 15MG/ML VIAL IV PRN (18:30)
[2023-06-23] MEDS ORDERED: HYDROCODONE/ACETAMINOPHEN 5/325MG TABLET PO PRN (18:30)
[2023-06-23] MEDS ORDERED: DOCUSATE SODIUM 100MG CAPSULE PO PRN (18:30)
[2023-06-23] MEDS ORDERED: CLONIDINE 0.1MG TABLET PO PRN (18:30)
[2023-06-23] MEDS ORDERED: IPRATROPIUM/ALBUTEROL 0.5-3(2.5)MG/3ML NEB HHN PRN (18:30)
[2023-06-23] MEDS ORDERED: ONDANSETRON HCL 4MG/2ML INJ IV PRN (18:30)
[2023-06-23] MEDS: SODIUM CHLORIDE 0.9% 1,000 ML IV SCH (18:59)
[2023-06-23] MEDS: CEFTRIAXONE 1GM PREMIX 50 ML IV SCH (20:00)
[2023-06-24 04:00] VITALS: BP 126/78; PULSE 70; RESP 18; TEMP 98.2
[2023-06-24 06:59] LABS: BASOPHILS % 0.5 % (0.0-2.0); DIFFERENTIAL COMMENT 0; EOSINOPHILS % 3.6 % (0.0-5.0); HEMATOCRIT. 27.7 % (36.0-48.0); HEMOGLOBIN. 9.1 g/dL (12.0-16.0); LYMPHOCYTES % 36.9 % (20.0-50.0); MEAN CORPUSCULAR HEMOGLOBIN 25.3 pg (28.0-32.0); MEAN CORPUSCULAR HGB CONC 32.7 g/dL (31.0-37.0); MEAN CORPUSCULAR VOLUME 77.2 fL (81.0-99.0); MEAN PLATELET VOLUME 8.2 fl (7.4-10.4); MONOCYTES % 7.5 % (2.0-8.0); NEUTROPHILS % 51.5 % (40.0-76.0); PLATELET 220 x1000/uL (130-400); RED BLOOD CELL COUNT 3.58 mill/uL (4.2-5.4); RED CELL DISTRIBUTION WIDTH 17.7 % (11.6-14.6); WHITE BLOOD COUNT 3.7 x1000/uL (4.5-11.0)
[2023-06-24 08:00] VITALS: BP 127/88; PULSE 62; RESP 20; TEMP 97.9
[2023-06-24 08:15] LABS: CALCIUM 7.4 mg/dL (8.7-10.4); CARBON DIOXIDE 17 mEq/L (21-32); CHLORIDE 113 mEq/L (98-107); CREATININE 0.5 mg/dL (0.6-1.0); GLUCOSE 75 mg/dL (70-105); POTASSIUM 2.9 mEq/L (3.5-5.1); SODIUM 142 mEq/L (136-145); UREA NITROGEN BLOOD 7 mg/dL (9-23)
[2023-06-24] MEDS ORDERED: NALOXONE HCL 0.4MG/ML VIAL IV PRN (08:30)
[2023-06-24 10:00] VITALS: BP 121/80; PULSE 62; RESP 22; TEMP 97.9
[2023-06-24] MEDS ORDERED: POTASSIUM CHLORIDE 20MEQ/PACKET PO SCH (11:00)
[2023-06-24 12:00] VITALS: BP 144/66; PULSE 73; RESP 18; TEMP 98.6
[2023-06-24] MEDS: SODIUM CHLORIDE 0.9% 1,000 ML IV SCH (12:48)
[2023-06-24 16:00] VITALS: BP 126/78; PULSE 70; RESP 18; TEMP 98.1
[2023-06-24 20:00] VITALS: BP 124/79; PULSE 65; RESP 18; TEMP 97.7
[2023-06-24] MEDS: CEFTRIAXONE 1GM PREMIX 50 ML IV SCH (20:00)
[2023-06-25] VITALS (17 sets, daily range): BP systolic 114–148; BP diastolic 69–101; PULSE 62–89; RESP 16–19; TEMP 96.5–98.2
[2023-06-25] MEDS: SODIUM CHLORIDE 0.9% 1,000 ML IV SCH ×3 (00:30→20:30)
[2023-06-25 08:09] LABS: PARTIAL THROMBOPLASTIN TIME 30.6 sec (23.4-31.0); PROTHROMBIN TIME 10.4 sec (9.6-11.0)
[2023-06-25] MEDS ORDERED: LIDOCAINE HCL 1% 10 MG/ML 10ML VIAL ONE (08:57)
[2023-06-25] MEDS ORDERED: IOHEXOL-300 50 ML BOTTLE IV ONE (08:57)
[2023-06-25 09:13] LABS: BASOPHILS % 0.5 % (0.0-2.0); DIFFERENTIAL COMMENT 0; HEMATOCRIT. 31.3 % (36.0-48.0); HEMOGLOBIN. 10.2 g/dL (12.0-16.0); LYMPHOCYTES % 32.2 % (20.0-50.0); MEAN CORPUSCULAR HEMOGLOBIN 25.1 pg (28.0-32.0); MEAN CORPUSCULAR HGB CONC 32.6 g/dL (31.0-37.0); MEAN CORPUSCULAR VOLUME 76.8 fL (81.0-99.0); MEAN PLATELET VOLUME 7.8 fl (7.4-10.4); MONOCYTES % 6.3 % (2.0-8.0); PLATELET 255 x1000/uL (130-400); RED BLOOD CELL COUNT 4.08 mill/uL (4.2-5.4); RED CELL DISTRIBUTION WIDTH 17.6 % (11.6-14.6); WHITE BLOOD COUNT 4.9 x1000/uL (4.5-11.0)
[2023-06-25] MEDS ORDERED: FENTANYL CITRATE/PF 50MCG/ML 2ML VIAL ONE (09:28)
[2023-06-25] MEDS ORDERED: FENTANYL CITRATE/PF 50MCG/ML 2ML VIAL IV ONE (10:00)
[2023-06-25 10:09] LABS: CALCIUM 8.4 mg/dL (8.7-10.4); CARBON DIOXIDE 23 mEq/L (21-32); CHLORIDE 109 mEq/L (98-107); CREATININE 0.6 mg/dL (0.6-1.0); GLUCOSE 86 mg/dL (70-105); POTASSIUM 3.7 mEq/L (3.5-5.1); SODIUM 140 mEq/L (136-145); UREA NITROGEN BLOOD 9 mg/dL (9-23)
[2023-06-25] MEDS: MEROPENEM 1G/100ML 100 ML IV SCH ×2 (15:30→22:08)
[2023-06-25] MEDS: VANCOMYCIN 1,750 MG in DEXT 5% WATER 500 ML IV NR ×2 (17:00→18:02)
[2023-06-26] MEDS: MEROPENEM 1G/100ML 100 ML IV SCH ×2 (05:49→13:53)
[2023-06-26] MEDS: SODIUM CHLORIDE 0.9% 1,000 ML IV SCH (05:49)
[2023-06-26] MEDS ORDERED: VANCOMYCIN 750MG PREMIX 150 ML IV SCH (07:00)
[2023-06-26 12:00] VITALS: BP 122/78; PULSE 80; RESP 18; TEMP 97.9
== END 2023-06-26 16:51 | disposition left against medical advice (07) | DRG 466 ==
LOC: ER 10:48 → 5WST 14:48 → EDBEDREQ 14:54 → EDBEDREQTM 14:54 → 6WST 06-24 08:24
PROVIDERS: ADMIT Internal Medicine; ATTEND Internal Medicine
PROC: 0T25X0Z Change Drainage Device in Kidney, External Approach (ICD-10-PCS; principal; 2023-06-25)
DX: T83.022A Displacement of nephrostomy catheter, initial encounter (principal); A41.9 Sepsis, unspecified organism; T83.512A Infection and inflammatory reaction due to nephrostomy catheter, initial encounter; N13.6 Pyonephrosis; D50.9 Iron deficiency anemia, unspecified; F17.200 Nicotine dependence, unspecified, uncomplicated; D72.819 Decreased white blood cell count, unspecified; E87.6 Hypokalemia; N20.0 Calculus of kidney; Z16.12 Extended spectrum beta lactamase (ESBL) resistance; Z98.891 History of uterine scar from previous surgery; Z87.442 Personal history of urinary calculi; Y84.8 Other medical procedures as the cause of abnormal reaction of the patient, or of later complication, without mention of misadventure at the time of the procedure; Y92.89 Other specified places as the place of occurrence of the external cause
CPT/HCPCS: 36415; 50435; 74177; 80048; 80053; 81003; 82962; 83605; 84145; 84703; 85025; 87077; 87186; 99152; 99153; 99285; C1725; C1729; C1760; C1769; J0692; J0696; J2185; J3010; J3370; J3490; J7030; J7060; Q9967; G0500

== ENCOUNTER 2023-09-11 04:13 | Inpatient (IN) | payer MEDICAID ==
[~2023-09-11] VITALS: Ht 170.2 cm; Wt 112.0 kg
[2023-09-11] MEDS: DIPHENHYDRAMINE 50MG/ML VIAL IM PRN (04:35)
[2023-09-11] MEDS: HALOPERIDOL LACTATE 5MG/ML VIAL IM ONE (04:35)
[2023-09-11] MEDS: HALOPERIDOL LACTATE 5MG/ML VIAL IM PRN (04:35)
[2023-09-11] MEDS: LORAZEPAM 2MG/ML INJ IM ONE (04:35)
[2023-09-11 06:11] LABS: CLARITY URINE TURBID (CLEAR); COLOR URINE YELLOW (YELLOW); GLUCOSE URINE NEGATIVE (NEGATIVE); KETONES URINE NEGATIVE (NEGATIVE); LEUKOCYTE ESTERASE URINE 3+ (NEGATIVE); NITRITE URINE POSITIVE (NEGATIVE); OCCULT BLOOD URINE 2+ (NEGATIVE); PROTEIN URINE 3+ (NEGATIVE); SPECIFIC GRAVITY URINE 1.015 (1.005-1.030)
[2023-09-11 06:13] LABS: BASOPHILS % 0.3 % (0.0-2.0); DIFFERENTIAL COMMENT 0; EOSINOPHILS % 0.3 % (0.0-5.0); HEMATOCRIT. 35.3 % (36.0-48.0); HEMOGLOBIN. 11.8 g/dL (12.0-16.0); LYMPHOCYTES % 18.7 % (20.0-50.0); MEAN CORPUSCULAR HEMOGLOBIN 25.3 pg (28.0-32.0); MEAN CORPUSCULAR HGB CONC 33.5 g/dL (31.0-37.0); MEAN CORPUSCULAR VOLUME 75.4 fL (81.0-99.0); MEAN PLATELET VOLUME 8.2 fl (7.4-10.4); MONOCYTES % 11.5 % (2.0-8.0); NEUTROPHILS % 69.2 % (40.0-76.0); PLATELET 303 x1000/uL (130-400); RED BLOOD CELL COUNT 4.68 mill/uL (4.2-5.4); RED CELL DISTRIBUTION WIDTH 17.3 % (11.6-14.6); WHITE BLOOD COUNT 8.9 x1000/uL (4.5-11.0)
[2023-09-11 06:29] LABS: ALANINE AMINOTRANSFERASE < 7 IU/L (10-49); ALBUMIN 3.9 g/dL (3.2-4.8); ASPARTATE AMINOTRANSFERASE 10 IU/L (<34); BILIRUBIN TOTAL 0.5 mg/dL (0.1-1.0); CALCIUM 8.3 mg/dL (8.7-10.4); CARBON DIOXIDE 26 mEq/L (21-32); CHLORIDE 99 mEq/L (98-107); GLUCOSE 107 mg/dL (70-105); SODIUM 131 mEq/L (136-145); UREA NITROGEN BLOOD 13 mg/dL (9-23)
[2023-09-11 07:14] LABS: WBC URINE TNTC /hpf (0-2)
[2023-09-11 07:15] LABS: BACTERIA URINE 1+; RBC URINE 0-2 /hpf (0-2); SQUAMOUS EPITHELIAL CELL URINE 1+ /lpf (RARE/1+)
[2023-09-11 07:18] LABS: PROTHROMBIN TIME 10.9 sec (9.6-11.0)
[2023-09-11] MEDS: LEVOFLOXACIN 750MG PREMIX 150 ML IV ONE (07:44)
[2023-09-11 12:00] VITALS: BP 111/64; PULSE 84; RESP 18; TEMP 97.7
[2023-09-11] MEDS ORDERED: ONDANSETRON HCL 4MG/2ML INJ IV PRN (12:45)
[2023-09-11] MEDS: MEROPENEM 1G/100ML 100 ML IV SCH (15:20)
[2023-09-11 16:00] VITALS: BP 118/80; PULSE 75; RESP 17; TEMP 97.7
[2023-09-11 20:00] VITALS: BP 106/64; PULSE 88; RESP 20; TEMP 96.3
[2023-09-12] VITALS: BP 122/77; PULSE 81; RESP 20; TEMP 97.9
[2023-09-12 04:00] VITALS: BP 108/70; PULSE 82; RESP 20; TEMP 96.1
[2023-09-12 08:00] VITALS: BP 106/69; PULSE 82; RESP 19; TEMP 97.7
[2023-09-12 12:00] VITALS: BP 132/79; PULSE 76; RESP 17; TEMP 96.6
[2023-09-12 16:00] VITALS: BP 95/55; PULSE 77; RESP 18; TEMP 96.5
[2023-09-12] MEDS: ACETAMINOPHEN 325MG TABLET PO PRN (19:52)
[2023-09-12 20:00] VITALS: BP 95/51; PULSE 79; RESP 20; TEMP 96.8
[2023-09-13] VITALS: BP 95/57; PULSE 72; RESP 20; TEMP 96.4
[2023-09-13 04:00] VITALS: BP 117/68; PULSE 71; RESP 20; TEMP 97.9
[2023-09-13 08:00] VITALS: BP 114/69; PULSE 72; RESP 20; TEMP 96.1
[2023-09-13] MEDS ORDERED: LEVO-65 MT (10:37)
[2023-09-13 12:00] VITALS: BP_SYST 118; BP_SYST 96; BP_DIAS 61; BP_DIAS 75; PULSE 74; PULSE 76; RESP 20; TEMP 96.1; TEMP 96.3
[2023-09-13 16:00] VITALS: BP 96/61; PULSE 74; RESP 20; TEMP 96.3
[2023-09-13 18:33] VITALS: BP 125/87; PULSE 87; TEMP 98.5; O2SAT 98
== END 2023-09-13 18:52 | disposition home or self-care (01) | DRG 463 ==
LOC: ER 04:13 → EDBEDREQTM 07:47 → EDBEDREQ 07:47 → 6EST 11:33
PROVIDERS: ADMIT Internal Medicine; ATTEND Internal Medicine
DX: N39.0 Urinary tract infection, site not specified (principal); B96.4 Proteus (mirabilis) (morganii) as the cause of diseases classified elsewhere; N20.0 Calculus of kidney; E66.9 Obesity, unspecified; Z68.38 Body mass index [BMI] 38.0-38.9, adult; Z87.442 Personal history of urinary calculi; Z98.891 History of uterine scar from previous surgery
CPT/HCPCS: 36415; 74176; 80053; 81003; 85025; 87077; 87186; 99285; J1200; J1630; J1956; J2185

== ENCOUNTER 2024-05-16 23:48 | Emergency (ER) | payer MEDICAID ==
[~2024-05-16] VITALS: Ht 170.2 cm; Wt 114.0 kg
[~2024-05-16 23:48] MED LIST changes: -AMOX1TAB16 MT; -CEFP200T13 MT; -CEPH500T MT; +LEVO-65 MT
[2024-05-16 23:55] VITALS: TEMP 98.1
[2024-05-17 00:02] VITALS: TEMP 36.72516; O2SAT 98
[2024-05-17] MEDS ORDERED: PREDNISONE 20MG TABLET PO ONE (00:15)
[2024-05-17] MEDS ORDERED: LIDOCAINE HCL 1% 20ML VIAL INFIL ONE (00:15)
[2024-05-17] MEDS ORDERED: CEFTRIAXONE SODIUM 1G VIAL IM ONE (00:15)
[2024-05-17] MEDS ORDERED: AZITHROMYCIN 500 MG TABLET PO ONE (00:15)
[2024-05-17] MEDS ORDERED: IBUPROFEN 400MG TABLET PO ONE (00:30)
[2024-05-17 00:35] LABS: BASOPHILS % 0.5 % (0.0-2.0); DIFFERENTIAL COMMENT 0; EOSINOPHILS % 1.4 % (0.0-5.0); HEMATOCRIT. 34.1 % (36.0-48.0); HEMOGLOBIN. 10.9 g/dL (12.0-16.0); LYMPHOCYTES % 19.9 % (20.0-50.0); MEAN CORPUSCULAR HEMOGLOBIN 24.2 pg (28.0-32.0); MEAN CORPUSCULAR VOLUME 75.5 fL (81.0-99.0); MEAN PLATELET VOLUME 7.1 fl (7.4-10.4); MONOCYTES % 13.5 % (2.0-8.0); NEUTROPHILS % 64.7 % (40.0-76.0); PLATELET 341 x1000/uL (130-400); RED BLOOD CELL COUNT 4.51 mill/uL (4.2-5.4); RED CELL DISTRIBUTION WIDTH 17.1 % (11.6-14.6); WHITE BLOOD COUNT 5.7 x1000/uL (4.5-11.0)
[2024-05-17 00:43] LABS: CHLORIDE 103 mEq/L (98-107); POTASSIUM 4.2 mEq/L (3.5-5.1); SODIUM 135 mEq/L (136-145)
[2024-05-17 00:44] LABS: CALCIUM 8.4 mg/dL (8.7-10.4); CARBON DIOXIDE 23 mEq/L (21-32)
[2024-05-17 00:49] LABS: GLUCOSE 95 mg/dL (70-105); UREA NITROGEN BLOOD 9 mg/dL (9-23)
[2024-05-17] MEDS: IPRATROPIUM/ALBUTEROL 0.5-3(2.5)MG/3ML NEB HHN ONE (01:44)
[2024-05-17 01:45] VITALS: PULSE 88; RESP 20; O2SAT 98
[2024-05-17] MEDS ORDERED: ALBU90AE INH (02:21)
[2024-05-17] MEDS ORDERED: AZIT250T12 MT (02:21)
[2024-05-17] MEDS ORDERED: P50 MT (02:21)
[2024-05-17 02:59] VITALS: BP 138/81; PULSE 88; RESP 20
[2024-05-17] MEDS: LIDOCAINE HCL 1% 20ML VIAL INFIL NR (02:59)
[2024-05-17] MEDS: PREDNISONE 20MG TABLET PO NR (02:59)
[2024-05-17] MEDS: IBUPROFEN 400MG TABLET PO NR (02:59)
[2024-05-17] MEDS: AZITHROMYCIN 500 MG TABLET PO NR (02:59)
[2024-05-17] MEDS: CEFTRIAXONE SODIUM 1G VIAL IM NR (02:59)
== END 2024-05-17 03:00 | disposition home or self-care (01) ==
LOC: ER 05-17 00:12
DX: J40 Bronchitis, not specified as acute or chronic (principal); E66.9 Obesity, unspecified; Z87.442 Personal history of urinary calculi; Z98.890 Other specified postprocedural states; Z79.899 Other long term (current) drug therapy; Z20.822 Contact with and (suspected) exposure to COVID-19
CPT/HCPCS: 80048; 85025; 85610; 87804 ×2; 36415; 71045; 94640; 93005; 96372; 99285; 87426; J7512; J0696; J3490; Z7610 ×3

== ENCOUNTER 2024-07-22 18:18 | Emergency (ER) | payer MEDICAID ==
[~2024-07-22] VITALS: Ht 170.2 cm; Wt 113.0 kg
[~2024-07-22 18:18] MED LIST changes: +ALBU90AE INH; +AZIT250T12 MT; +P50 MT
[2024-07-22 18:21] VITALS: O2SAT 100
[2024-07-22 18:30] VITALS: BP 135/70; PULSE 100; RESP 16; TEMP 36.8; O2SAT 100
[2024-07-22 20:03] LABS: CHLORIDE 106 mEq/L (98-107); POTASSIUM 3.8 mEq/L (3.5-5.1); SODIUM 138 mEq/L (136-145)
[2024-07-22 20:04] LABS: CALCIUM 8.5 mg/dL (8.7-10.4); CARBON DIOXIDE 25 mEq/L (21-32)
[2024-07-22 20:07] LABS: BASOPHILS % 0.6 % (0.0-2.0); DIFFERENTIAL COMMENT 0; EOSINOPHILS % 4.7 % (0.0-5.0); HEMATOCRIT. 34.4 % (36.0-48.0); HEMOGLOBIN. 11.4 g/dL (12.0-16.0); LYMPHOCYTES % 31.2 % (20.0-50.0); MEAN CORPUSCULAR HEMOGLOBIN 24.7 pg (28.0-32.0); MEAN CORPUSCULAR VOLUME 74.6 fL (81.0-99.0); NEUTROPHILS % 50.5 % (40.0-76.0); PLATELET 278 x1000/uL (130-400); RED BLOOD CELL COUNT 4.61 mill/uL (4.2-5.4); RED CELL DISTRIBUTION WIDTH 17.7 % (11.6-14.6); WHITE BLOOD COUNT 4.9 x1000/uL (4.5-11.0)
[2024-07-22 20:09] LABS: CREATININE 0.8 mg/dL (0.6-1.0); GLUCOSE 106 mg/dL (70-105); TROPONIN I HIGH SENSITIVITY 13 ng/L (3.0-34); UREA NITROGEN BLOOD 13 mg/dL (9-23)
[2024-07-22] MEDS: ALBUTEROL (0.083%) 2.5MG/3ML NEB HHN ONE (20:45)
[2024-07-22] MEDS: PREDNISONE 20MG TABLET PO ONE (20:50)
[2024-08-17] MEDS ORDERED: FAMO-135 MT (05:12)
[2024-08-17] MEDS ORDERED: CEPH500C2 MT (05:12)
[2024-08-18] MEDS ORDERED: FAMO-135 MT (14:27)
[2024-08-18] MEDS ORDERED: LEVO-65 MT (14:27)
[2024-08-18] MEDS ORDERED: IBUP-2030 MT (14:27)
== END 2024-07-22 22:24 | disposition left against medical advice (07) ==
LOC: ER 18:27
DX: R07.89 Other chest pain (principal); R05.9 Cough, unspecified; R06.02 Shortness of breath; Z79.899 Other long term (current) drug therapy; Z79.52 Long term (current) use of systemic steroids; Z98.890 Other specified postprocedural states
CPT/HCPCS: 80048; 85025; 84484; 36415; 71045; 93005; 99285; J7512; Z7610

== ENCOUNTER 2025-05-03 12:34 | Inpatient (IN) | payer MEDICAID ==
[~2025-05-03] VITALS: Ht 167.6 cm; Wt 104.3 kg
[~2025-05-03 12:34] MED LIST changes: -AZIT250T12 MT; +FAMO-135 MT; -P50 MT; -PNV1TABL50 PO; -[UNRECOGNIZED DRUG - OTHER]
[2025-05-03 12:37] VITALS: O2SAT 100
[2025-05-03 13:20] LABS: BASOPHILS % 0.2 % (0.0-2.0); EOSINOPHILS % 0.2 % (0.0-5.0); HEMATOCRIT. 34.1 % (36.0-48.0); HEMOGLOBIN. 11.0 g/dL (12.0-16.0); LYMPHOCYTES % 10.6 % (20.0-50.0); MEAN PLATELET VOLUME 7.9 fl (7.4-10.4); MONOCYTES % 9.5 % (2.0-8.0); NEUTROPHILS % 79.5 % (40.0-76.0); PLATELET 316 x1000/uL (130-400); RED BLOOD CELL COUNT 4.49 mill/uL (4.2-5.4); RED CELL DISTRIBUTION WIDTH 17.1 % (11.6-14.6)
[2025-05-03] MEDS: ONDANSETRON HCL 4MG/2ML INJ IV ONE (13:22)
[2025-05-03] MEDS: MORPHINE SULFATE 4 MG/ML INJ (FOR IV/IM USE) IV ONE (13:22)
[2025-05-03] MEDS: SODIUM CHLORIDE 0.9% 1,000 ML IV ONE (13:22)
[2025-05-03 13:33] LABS: CREATININE 0.9 mg/dL (0.6-1.0); UREA NITROGEN BLOOD 6 mg/dL (9-23)
[2025-05-03 13:34] LABS: PROTEIN TOTAL 7.1 g/dL (6.0-8.3)
[2025-05-03 13:35] LABS: BILIRUBIN DIRECT 0.2 mg/dL (<=3.0)
[2025-05-03 13:36] LABS: BILIRUBIN TOTAL 0.7 mg/dL (0.1-1.0)
[2025-05-03 13:44] LABS: ASPARTATE AMINOTRANSFERASE < 8 IU/L (<34)
[2025-05-03 13:52] LABS: INR 1.0
[2025-05-03] MEDS: MAGNESIUM 2 G PREMIX 50 ML IV ONE (15:31)
[2025-05-03] MEDS ORDERED: ACETAMINOPHEN 325MG TABLET PO PRN (17:30)
[2025-05-03] MEDS ORDERED: CLONIDINE 0.1MG TABLET PO PRN (17:30)
[2025-05-03] MEDS ORDERED: GUAIFENESIN 200MG/10ML SUGAR FREE UDC PO PRN (17:30)
[2025-05-03] MEDS ORDERED: DOCUSATE SODIUM 100MG CAPSULE PO PRN (17:30)
[2025-05-03] MEDS ORDERED: MAGNESIUM/ALUMINUM HYDROXIDE/SIMETHICONE 30ML UDC PO PRN (17:30)
[2025-05-03] MEDS ORDERED: IPRATROPIUM/ALBUTEROL 0.5-3(2.5)MG/3ML NEB HHN PRN (17:30)
[2025-05-03] MEDS ORDERED: MAGNESIUM 4 G PREMIX 100 ML IV ONE (17:45)
[2025-05-03 17:52] LABS: CLARITY URINE TURBID (CLEAR); COLOR URINE YELLOW (YELLOW); GLUCOSE URINE NEGATIVE (NEGATIVE); KETONES URINE NEGATIVE (NEGATIVE); LEUKOCYTE ESTERASE URINE 3+ (NEGATIVE); NITRITE URINE POSITIVE (NEGATIVE); OCCULT BLOOD URINE 3+ (NEGATIVE); PH URINE 6.5 (4.5-8.0); PROTEIN URINE 3+ (NEGATIVE); SPECIFIC GRAVITY URINE 1.013 (1.005-1.030); UROBILINOGEN URINE 0.2 E.U./dL (0.2-1.0)
[2025-05-03] MEDS: TAMSULOSIN HCL 0.4MG SR CAPSULE PO SCH (18:00)
[2025-05-03 18:04] LABS: *AMPHETAMINES SCREEN URINE PRESUMPTIVE POSITIVE (NEGATIVE); *BARBITURATES SCREEN URINE NEGATIVE (NEGATIVE); *BENZODIAZEPINES SCREEN URINE NEGATIVE (NEGATIVE)
[2025-05-03 18:05] LABS: *COCAINE SCREEN URINE NEGATIVE (NEGATIVE); CANNABINOID URINE SCREEN NEGATIVE (NEGATIVE); ECSTASY MDMA SCREEN URINE NEGATIVE (NEGATIVE); METHADONE URINE SCREEN NEGATIVE (NEGATIVE); OPIATES URINE SCREEN PRESUMPTIVE POSITIVE (NEGATIVE); PHENCYCLIDINE URINE SCREEN NEGATIVE (NEGATIVE)
[2025-05-03 18:43] LABS: FOLIC ACID (FOLATE) SERUM 9.82 ng/mL (>5.38); VITAMIN B12 SERUM 492 pg/mL (211-911)
[2025-05-03] MEDS ORDERED: CEFTRIAXONE 2GM/50ML 50 ML IV SCH (19:00)
[2025-05-03 20:00] VITALS: BP 148/83; PULSE 108; RESP 19; TEMP 36.6; O2SAT 98
[2025-05-03 20:02] LABS: BACTERIA URINE 4+; RBC URINE TNTC /hpf (0-2); SQUAMOUS EPITHELIAL CELL URINE 1+ /lpf (RARE/1+); WBC URINE TNTC /hpf (0-2)
[2025-05-03] MEDS: ONDANSETRON HCL 4MG/2ML INJ IV PRN (20:51)
[2025-05-03] MEDS: KETOROLAC 30MG/ML VIAL IV PRN (20:51)
[2025-05-03] MEDS ORDERED: AMLODIPINE 5MG TABLET PO SCH (21:00)
[2025-05-03] MEDS: AMLODIPINE 5MG TABLET PO SCH (21:01)
[2025-05-03] MEDS: SODIUM CHLORIDE 0.9% 1,000 ML IV SCH (21:11)
[2025-05-03] MEDS: MAGNESIUM 2G PREMIX 50ML IV SCH (21:21)
[2025-05-03] MEDS ORDERED: INFLUENZA VACCINE 05/PF 0.5 ML SYRINGE IM ONE (22:00)
[2025-05-03] MEDS ORDERED: PNEUMOCOCCAL 20-VAL CONJ-DIP CRM 0.5ML IM ONE (22:00)
[2025-05-03 22:01] VITALS: BP 148/83; PULSE 108; RESP 19; TEMP 36.5848
[2025-05-03] MEDS: CEFTRIAXONE 2GM/50ML 50 ML IV SCH (23:37)
[2025-05-04] VITALS: BP 127/75; PULSE 89; RESP 18; TEMP 35.9; O2SAT 98
[2025-05-04 04:00] VITALS: BP 140/87; PULSE 96; RESP 18; TEMP 36.4; O2SAT 99
[2025-05-04] MEDS: ACETAMINOPHEN 325MG TABLET PO PRN (05:51)
[2025-05-04 08:00] VITALS: BP 121/78; PULSE 97; RESP 19; TEMP 36.5; O2SAT 97
[2025-05-04 10:52] LABS: BASOPHILS % 0.2 % (0.0-2.0); EOSINOPHILS % 0.3 % (0.0-5.0); HEMATOCRIT. 30.5 % (36.0-48.0); HEMOGLOBIN. 9.9 g/dL (12.0-16.0); LYMPHOCYTES % 11.0 % (20.0-50.0); MEAN PLATELET VOLUME 8.2 fl (7.4-10.4); MONOCYTES % 7.2 % (2.0-8.0); NEUTROPHILS % 81.3 % (40.0-76.0); PLATELET 248 x1000/uL (130-400); RED BLOOD CELL COUNT 3.99 mill/uL (4.2-5.4); RED CELL DISTRIBUTION WIDTH 16.5 % (11.6-14.6)
[2025-05-04 11:15] LABS: CREATININE 0.9 mg/dL (0.6-1.0); TRIGLYCERIDE 74 mg/dL (0-150); UREA NITROGEN BLOOD 7 mg/dL (9-23)
[2025-05-04 11:16] LABS: LDL CHOLESTEROL 49 mg/dL (5-100); T4 FREE 1.18 ng/dL (0.89-1.76)
[2025-05-04 12:00] VITALS: BP 123/67; PULSE 94; RESP 17; TEMP 35.7; O2SAT 98
[2025-05-04] MEDS: POTASSIUM CHLORIDE 20MEQ/PACKET PO NR (14:19)
[2025-05-04 16:00] VITALS: BP 129/71; PULSE 104; RESP 18; TEMP 35.7; O2SAT 97
[2025-05-04 20:00] VITALS: BP 137/79; PULSE 96; RESP 18; TEMP 37; O2SAT 98
[2025-05-04] MEDS: SODIUM CHLORIDE 0.9% 1,000 ML IV SCH (23:04)
[2025-05-05] VITALS: BP 135/75; PULSE 98; RESP 18; TEMP 36.9; O2SAT 99
[2025-05-05 04:00] VITALS: BP 136/85; PULSE 94; RESP 16; TEMP 36.4; O2SAT 99
[2025-05-05 07:54] LABS: BASOPHILS % 0.1 % (0.0-2.0); EOSINOPHILS % 0.6 % (0.0-5.0); HEMATOCRIT. 29.4 % (36.0-48.0); HEMOGLOBIN. 9.5 g/dL (12.0-16.0); LYMPHOCYTES % 12.5 % (20.0-50.0); MEAN PLATELET VOLUME 7.8 fl (7.4-10.4); MONOCYTES % 7.5 % (2.0-8.0); NEUTROPHILS % 79.3 % (40.0-76.0); PLATELET 248 x1000/uL (130-400); RED BLOOD CELL COUNT 3.90 mill/uL (4.2-5.4); RED CELL DISTRIBUTION WIDTH 16.6 % (11.6-14.6)
[2025-05-05 08:00] VITALS: BP 139/85; PULSE 80; RESP 19; TEMP 36.4; O2SAT 98
[2025-05-05 08:02] LABS: CREATININE 0.8 mg/dL (0.6-1.0); UREA NITROGEN BLOOD 7 mg/dL (9-23)
[2025-05-05 08:04] LABS: PHOSPHORUS 2.4 mg/dL (2.5-4.9)
[2025-05-05 12:00] VITALS: BP 127/82; PULSE 89; RESP 19; TEMP 36.2; O2SAT 98
[2025-05-05] MEDS ORDERED: TAMS-54 MT (15:22)
[2025-05-05] MEDS ORDERED: LEVO750T68 MT (15:22)
[2025-05-05 15:42] VITALS: BP 116/66; PULSE 89; RESP 18; TEMP 97.5
[2025-05-05 16:00] VITALS: BP 116/66; PULSE 89; RESP 18; TEMP 36.3; O2SAT 99
== END 2025-05-05 17:19 | disposition home or self-care (01) | DRG 463 ==
LOC: ER 12:34 → 7EST 16:35 → EDBEDREQ 16:37 → EDBEDREQTM 16:37
PROVIDERS: ADMIT Internal Medicine; ATTEND Internal Medicine
DX: N13.6 Pyonephrosis (principal); E87.1 Hypo-osmolality and hyponatremia; D50.8 Other iron deficiency anemias; F15.90 Other stimulant use, unspecified, uncomplicated; E78.5 Hyperlipidemia, unspecified; I10 Essential (primary) hypertension; J45.909 Unspecified asthma, uncomplicated; E83.42 Hypomagnesemia; E87.6 Hypokalemia; Z79.899 Other long term (current) drug therapy; Z98.891 History of uterine scar from previous surgery; Z87.442 Personal history of urinary calculi
CPT/HCPCS: 36415; 74176; 76705; 80048; 80061; 80076; 80305; 81003; 82607; 82728; 82746; 83036; 83540; 83550; 83605; 83735; 84100; 84145; 84439; 84443; 85025; 85044; 86850; 86900; 87077; 87186; 93005; 93970; 96361; 96365; 96375; 99285; J0696; J1885; J2270; J2405; J3475; J7030